=== PATIENT | female | born 1955 | race Caucasian/White ===

== ENCOUNTER 2018-09-23 14:18 | Emergency (ER) | payer OTHER ==
[~2018-09-23] VITALS: Ht 162.5 cm; Wt 127.9 kg
[~2018-09-23 14:18] MED LIST: AMOXIL500 MG PO; ANAPROX DS550 MG PO; ANTIVERT25 MG PO; BIAXIN500 MG PO; CHOLESTEROL PILL; CIPRODEX 0.3%-7.5 ML OT; CLARITIN10 MG PO; DAYPRO600 M1 PO; HYDROCODONE BIT1 T11 PO; MOTRIN800 MG; MOTRIN800 MG PO; NAPROSYN500 MG PO; NKHM; NORFLEX100 MG PO; PROZAC20 MG; PROZAC20 MG PO; ROBAXIN750 MG PO; SEPTRA DS 800 M1 TAB PO; SYNTHROID0.025 MG; THYROID; TORADOL10 MG PO; TRAMADOL HCL50 MG PO; TRIMOX500 MG PO; ULTRAM PO; ULTRAM50 MG PO; VICODIN 5/500 505 MG; VICODIN 5/500 505 MG PO; VICODIN 500 MG-1 TAB PO; ZOFRAN ODT4 MG SL
== END 2018-09-23 17:00 | disposition home or self-care (01) ==
LOC: ED 14:18
DX: T14.8XXA Other injury of unspecified body region, initial encounter (principal); M25.562 Pain in left knee; M25.531 Pain in right wrist; M79.631 Pain in right forearm; M25.572 Pain in left ankle and joints of left foot; W01.0XXA Fall on same level from slipping, tripping and stumbling without subsequent striking against object, initial encounter; Y93.01 Activity, walking, marching and hiking; Y92.89 Other specified places as the place of occurrence of the external cause; Y99.8 Other external cause status

== ENCOUNTER 2018-10-07 17:01 | Emergency (ER) | payer OTHER ==
[~2018-10-07] VITALS: Ht 162.5 cm; Wt 113.4 kg
== END 2018-10-07 17:57 | disposition home or self-care (01) ==
LOC: ED 17:01
DX: S90.02XA Contusion of left ankle, initial encounter (principal); X58.XXXA Exposure to other specified factors, initial encounter; Y93.89 Activity, other specified; Y92.89 Other specified places as the place of occurrence of the external cause; Y99.8 Other external cause status

== ENCOUNTER → 2019-02-10 | Outpatient (CLI) | payer OTHER | END | disposition home or self-care (01) | LOC: US 01-25 12:30 | DX: M79.605 Pain in left leg (principal); M79.604 Pain in right leg; R09.89 Other specified symptoms and signs involving the circulatory and respiratory systems; I73.9 Peripheral vascular disease, unspecified; Z72.0 Tobacco use ==

== ENCOUNTER → 2019-05-23 | Outpatient (CLI) | payer OTHER | END | disposition home or self-care (01) | LOC: MAMMO 09:04 | DX: Z12.31 Encounter for screening mammogram for malignant neoplasm of breast (principal) ==

== ENCOUNTER 2019-06-11 12:10 | Emergency (ER) | payer OTHER ==
[~2019-06-11] VITALS: Ht 162.5 cm; Wt 108.9 kg
[2019-06-11 13:23] LABS: BASO # 0.1 10*3/uL (0.0-0.1); BASO % 0.9 % (0.0-1.0); EOS # 0.1 10*3/uL (0.0-0.4); EOS % 1.7 % (1.0-4.0); HEMOGLOBIN 11.7 g/dl (12.0-16.0); LYMPH # 1.4 10*3/uL (1.3-4.4); MEAN CELL VOLUME 92.8 fl (81.0-99.0); MEAN CORPUSCULAR HGB 30.2 pg (27.0-31.0); MEAN CORPUSCULAR HGB CONC 32.5 g/dl (33.0-37.0); MEAN PLATELET VOLUME 8.4 fl (9.6-12.3); MONO # 0.8 10*3/uL (0.1-1.0); MONO % 11.7 % (3.0-9.0); NEUT # 4.5 10*3/uL (2.3-7.9); NEUT % 64.8 % (47.0-73.0); PLATELET COUNT AUTOMATED 256 10*3/uL (130-400); RED BLOOD COUNT 3.88 10*6/uL (4.10-5.10); RED CELL DISTRI WIDTH 12.3 % (0-14.5)
[2019-06-11 13:40] LABS: ALBUMIN 3.8 gm/dl (3.1-4.5); ALKALINE PHOSPHATASE 85 U/L (45-117); BUN 6 mg/dl (7-24); CHLORIDE 97 mmol/L (98-107); CREATININE 0.87 mg/dL (0.55-1.02); POTASSIUM 4.4 mmol/L (3.5-5.1); SGOT/AST 18 IU/L (3-35); SGPT/ALT 27 U/L (12-78); SODIUM 130 mmol/L (136-145); TOTAL PROTEIN 7.1 gm/dL (6.4-8.2)
[2019-06-11 13:41] LABS: TROPONIN I < 0.015 ng/ml (<0.045)
[2019-06-11] MEDS ORDERED: PREDNISONE20 M1 PO (14:21)
[2019-06-11] MEDS ORDERED: VIBRAMYCIN100 MG PO (14:21)
== END 2019-06-11 14:24 | disposition home or self-care (01) ==
LOC: ED 12:10
PROVIDERS: Emergency Medicine
DX: J44.1 Chronic obstructive pulmonary disease with (acute) exacerbation (principal); E78.00 Pure hypercholesterolemia, unspecified; F32.9 Major depressive disorder, single episode, unspecified; F17.200 Nicotine dependence, unspecified, uncomplicated; Z79.899 Other long term (current) drug therapy; Z90.710 Acquired absence of both cervix and uterus

== ENCOUNTER 2019-09-17 13:40 | Inpatient (IN) | payer OTHER, MEDICAID ==
[~2019-09-17] VITALS: Ht 162.5 cm; Wt 114.8 kg
[~2019-09-17 13:40] MED LIST changes: +PREDNISONE20 M1 PO; +VIBRAMYCIN100 MG PO
[2019-09-17 13:48] VITALS: BP 156/77
[2019-09-17 15:55] LABS: BASO # 0.1 10*3/uL (0.0-0.1); BASO % 0.5 % (0.0-1.0); EOS # 0.2 10*3/uL (0.0-0.4); HEMATOCRIT 33.6 % (37.0-47.0); LYMPH # 1.5 10*3/uL (1.3-4.4); LYMPH % 15.6 % (27.0-41.0); MEAN CELL VOLUME 91.6 fl (81.0-99.0); MEAN CORPUSCULAR HGB 29.4 pg (27.0-31.0); MEAN CORPUSCULAR HGB CONC 32.1 g/dl (33.0-37.0); MEAN PLATELET VOLUME 8.2 fl (9.6-12.3); MONO # 0.7 10*3/uL (0.1-1.0); MONO % 7.8 % (3.0-9.0); NEUT # 6.9 10*3/uL (2.3-7.9); NEUT % 73.2 % (47.0-73.0); PLATELET COUNT AUTOMATED 303 10*3/uL (130-400); RED BLOOD COUNT 3.67 10*6/uL (4.10-5.10); RED CELL DISTRI WIDTH 12.5 % (0-14.5); WHITE BLOOD COUNT 9.4 10*3/uL (4.8-10.8)
[2019-09-17 16:10] LABS: ALBUMIN 3.4 gm/dl (3.1-4.5); ALKALINE PHOSPHATASE 108 U/L (45-117); BUN 7 mg/dl (7-24); CHLORIDE 101 mmol/L (98-107); CREATININE 0.84 mg/dL (0.55-1.02); POTASSIUM 4.2 mmol/L (3.5-5.1); SGOT/AST 18 IU/L (3-35); SGPT/ALT 26 U/L (12-78); SODIUM 135 mmol/L (136-145); TOTAL PROTEIN 6.8 gm/dL (6.4-8.2)
[2019-09-17 18:15] VITALS: BP 146/74
--- NOTE | 2019-09-17 18:15 | NUR ---
Time: 1814 A 63 year old FEMALE admitted to 5E under services of DR. MARY RUSH,BK. Pt. arrived via stretcher from ER. Chief complaint: BACK/GROIN PAIN. JAISON COLEY
[2019-09-17] MEDS ORDERED: PRILOSEC20 M1 PO (18:36)
[2019-09-17] MEDS ORDERED: ARIPIPRAZOLE10 MG PO (18:36)
[2019-09-17] MEDS ORDERED: ROSUVASTATIN CA40 MG PO (18:37)
[2019-09-17] MEDS ORDERED: Synthroid,Levo88 MCG PO (18:37)
[2019-09-17] MEDS ORDERED: ZOLPIDEM10 MG PO (18:38)
[2019-09-17] MEDS ORDERED: [UNRECOGNIZED DRUG - REMARK] PO (18:38)
[2019-09-17] MEDS ORDERED: NEURONTIN300 MG PO (18:40)
[2019-09-17] MEDS ORDERED: HYDROXYZINE PAM25 M1 PO (18:41)
[2019-09-17] MEDS ORDERED: MELOXICAM7.5 MG PO (18:43)
[2019-09-17 20:00] VITALS: BP 119/77
--- NOTE | 2019-09-17 21:12 | NUR ---
PATIENT COMPLAINING OF BACK PAIN. DR HERNANDEZ CALLED FOR ORDERS WITHOUT ANSWER. WILL RETRY.
--- NOTE | 2019-09-17 21:16 | NUR ---
NEW ORDER REC'D FOR TORADOL FROM DR HERNANDEZ.
[2019-09-17 21:30] LABS: BILIRUBIN NEGATIVE (NEGATIVE); BLOOD TRACE-LYSED (NEGATIVE); CLARITY CLEAR (CLEAR); COLOR YELLOW (YELLOW); GLUCOSE NEGATIVE (NEGATIVE); KETONE NEGATIVE (NEGATIVE); SPECIFIC GRAVITY 1.005 (1.005-1.030)
[2019-09-17 21:31] LABS: LEUKO ESTERASE NEGATIVE (NEGATIVE); NITRITE NEGATIVE (NEGATIVE); UROBILINOGEN 0.2 E.U./dl (0.2-1.0)
[2019-09-17 21:37] LABS: BACTERIA TRACE; RBC 0-2 rbc/hpf (0-2)
--- NOTE | 2019-09-17 22:03 | NUR ---
1X IV TORADOL GIVEN PER ORDERS FOR PATIENTS C/O BACK AND GROIN PAIN.
--- NOTE | 2019-09-17 23:31 | NUR ---
PATIENT STATES PAIN HAS RESOLVED WITH TORADOL.
[2019-09-18] VITALS: BP 125/69
--- NOTE | 2019-09-18 03:14 | NUR ---
PATIENT SLEEPING; EASY RESPIRATIONS ON ROOM AIR. CALL LIGHT IN [facility].
--- NOTE | 2019-09-18 05:56 | NUR ---
Hep Lock discontinued. Site ECCHYMOTIC & PAINFUL. Pressure applied. Sterile dressing applied. DALJIT GEE
--- NOTE | 2019-09-18 06:00 | NUR ---
PATIENT IS COMPLAINING OF BACK PAIN R/T FALL AT HOME. DR HERNANDEZ CALLED FOR ORDERS. NEW ORDER FOR AMBER ROTHMAN'Carloz.
[2019-09-18 06:25] LABS: BASO # 0.1 10*3/uL (0.0-0.1); BASO % 0.7 % (0.0-1.0); EOS # 0.2 10*3/uL (0.0-0.4); EOS % 3.4 % (1.0-4.0); HEMATOCRIT 33.5 % (37.0-47.0); LYMPH # 1.3 10*3/uL (1.3-4.4); LYMPH % 18.1 % (27.0-41.0); MEAN CELL VOLUME 90.5 fl (81.0-99.0); MEAN CORPUSCULAR HGB 28.6 pg (27.0-31.0); MEAN CORPUSCULAR HGB CONC 31.6 g/dl (33.0-37.0); MEAN PLATELET VOLUME 8.6 fl (9.6-12.3); MONO # 0.7 10*3/uL (0.1-1.0); MONO % 10.5 % (3.0-9.0); NEUT # 4.7 10*3/uL (2.3-7.9); NEUT % 66.7 % (47.0-73.0); PLATELET COUNT AUTOMATED 317 10*3/uL (130-400); RED CELL DISTRI WIDTH 12.5 % (0-14.5); WHITE BLOOD COUNT 7.1 10*3/uL (4.8-10.8)
[2019-09-18 07:00] LABS: ALBUMIN 3.1 gm/dl (3.1-4.5); BUN 8 mg/dl (7-24); CHLORIDE 101 mmol/L (98-107); CREATININE 0.84 mg/dL (0.55-1.02); POTASSIUM 4.4 mmol/L (3.5-5.1); SGOT/AST 14 IU/L (3-35); SGPT/ALT 21 U/L (12-78); SODIUM 137 mmol/L (136-145)
[2019-09-18 07:01] LABS: ALKALINE PHOSPHATASE 94 U/L (45-117); TOTAL PROTEIN 6.2 gm/dL (6.4-8.2)
[2019-09-18 08:00] VITALS: BP 136/71
--- NOTE | 2019-09-18 08:13 | NUR ---
NORCO RELIEVING PAIN PER PT. WILL CONTINUE TO MONITOR.
[2019-09-18 12:00] VITALS: BP 107/69
--- NOTE | 2019-09-18 13:23 | NUR ---
PT MEDICATED WITH PO NORCO PER PRN ORDER FOR C/O LOWER BACK PAIN. RATES PAIN 11/13. WILL MONITOR EFFECTIVENES. PT ALSO MEDICATED WITH PO VISTARIL PER PRN ORDER FOR C/O ANXIETY. WILL MONITOR EFFECTIVENESS. CALL LIGHT WITHIN REACH.
--- NOTE | 2019-09-18 13:35 | NUR ---
NOTIFIED REGARDING PODIATRY CONSULT.
[2019-09-18 14:12] LABS: THYROID STIM HORMONE (HS) 22.8 uIU/ml (0.358-4.75)
--- NOTE | 2019-09-18 14:23 | NUR ---
NORCO AND VISTARIL EFFECTIVE PER PT. WILL CONTINUE TO MONITOR. CALL LIGHT WITHIN REACH.
[2019-09-18 16:00] VITALS: BP 124/57
--- NOTE | 2019-09-18 19:59 | NUR ---
PT REQUESTING PAIN MEDICATION AND STATES SHE TAKES NORCO 4 TIMES A DAY. RN QUESTIONED THIS, MEDICATION NOT LISTED ON MED REC. PT STATES NORCO WAS RECENTLY CHANGED TO NEURONTIN. RN EXPLAINED THAT NEURONTIN IS DUE AT 2200. PT IN AGREEANCE WITH THIS. AWARE NORCO IS AVAILABLE AT THIS TIME BID PRN FOR PAIN TO SUPPLEMENT. VERBALIZES UNDERSTANDING. IV VANC INFUSION INITIATED PER ORDER. WILL MONITOR. CALL LIGHT IN REACH.
[2019-09-18 20:00] VITALS: BP 132/68
--- NOTE | 2019-09-18 20:57 | NUR ---
CLAUDIA MARTIN ADMINISTERED PER REQUEST FOR C/O INSOMNIA. WILL MONITOR EFFECTIVENESS. CALL LIGHT IN REACH.
--- NOTE | 2019-09-18 21:45 | NUR ---
PT STATES EARLIER CHAYAMARY ANN HAS NOT YET MADE HER TIRED, BUT WANTS TO "GIVE IT A LITTLE WHILE." WILL MONITOR.
--- NOTE | 2019-09-18 22:56 | NUR ---
PT'S DAUGHTER CALLED DESK STATING PATIENT IS IN PAIN, BUT WON'T TELL RN. RN IN TO FLUSH PT'S IV. ASKED ABOUT PAIN. PT STATES SHE IS HAVING PAIN IN GROIN/BACK RATED 8/10. REQUESTING PAIN MEDICATION. CALLED AT THIS TIME AND NOTIFIED OF REQUEST. AWARE PT HAS HAD BOTH DOSES OF NORCO FOR TODAY. NEW ORDER RECEIVED FOR 0.5 DILAUDID X1 DOSE NOW.
--- NOTE | 2019-09-18 23:12 | NUR ---
IV DILAUDID ADMINISTERED PER ONE TIME ORDER FOR C/O GROIN/BACK PAIN RATED 8/10. WILL MONITOR EFFECTIVENESS. CALL LIGHT IN REACH.
--- NOTE | 2019-09-18 23:49 | NUR ---
EARLIER MEDICATIONS EFFECTIVE PER PT. WILL CONTINUE TO MONITOR. CALL LIGHT IN REACH.
[2019-09-19] VITALS: BP 150/76
--- NOTE | 2019-09-19 01:57 | NUR ---
PT ASLEEP IN BED. RESPIRATIONS EASY. NO S/S OF DISTRESS NOTED. WILL MONITOR. CALL LIGHT IN REACH.
--- NOTE | 2019-09-19 06:38 | NUR ---
NEW IV SITE INITIATED TO LAC PER POLICY. IV SITE TO RAC LEAKING. RAC SITE REMOVED AND DSD APPLIED.
[2019-09-19 07:21] LABS: BASO % 0.3 % (0.0-1.0); HEMATOCRIT 36.8 % (37.0-47.0); LYMPH # 0.8 10*3/uL (1.3-4.4); LYMPH % 8.6 % (27.0-41.0); MEAN CELL VOLUME 90.6 fl (81.0-99.0); MEAN CORPUSCULAR HGB 28.8 pg (27.0-31.0); MEAN CORPUSCULAR HGB CONC 31.8 g/dl (33.0-37.0); MEAN PLATELET VOLUME 8.2 fl (9.6-12.3); MONO # 0.5 10*3/uL (0.1-1.0); MONO % 5.6 % (3.0-9.0); NEUT # 7.7 10*3/uL (2.3-7.9); NEUT % 84.5 % (47.0-73.0); PLATELET COUNT AUTOMATED 321 10*3/uL (130-400); RED BLOOD COUNT 4.06 10*6/uL (4.10-5.10); RED CELL DISTRI WIDTH 12.4 % (0-14.5); WHITE BLOOD COUNT 9.2 10*3/uL (4.8-10.8)
[2019-09-19 07:43] LABS: BUN 8 mg/dl (7-24); CHLORIDE 102 mmol/L (98-107); CREATININE 0.87 mg/dL (0.55-1.02); POTASSIUM 4.3 mmol/L (3.5-5.1); SODIUM 137 mmol/L (136-145)
[2019-09-19 08:00] VITALS: BP 142/72
--- NOTE | 2019-09-19 08:00 | NUR ---
ASSESSMENT COMPLETE. PT AWARE NPO FOR TESTING THIS MORNING. SITTING AT BEDSIDE, EDEMA NOTED TO LOWER EXTREMITY, PT REFUSE SARA HOSE AT THIS TIME. PT STATES NO OTHER NEEDS AT THIS TIME.
--- NOTE | 2019-09-19 08:15 | NUR ---
Shift chart check completed.
--- NOTE | 2019-09-19 08:24 | NUR ---
PT SENT TO ULTRASOUND FOR ULTRASOUND ABDOMEN
--- NOTE | 2019-09-19 08:29 | NUR ---
Per nurse caring for patient, patient is off floor for multiple testing.
--- NOTE | 2019-09-19 10:30 | NUR ---
Practice Architect in to talk to patient. Patient states lives at home with her daughter. There are basement steps in the home. Physician: Dr. Praneeth Galeano [facility] Home health services: none Patient's level of ADLs: MINIMAL ASSIST Patient has working utilities: yes DME: cane Follow-up physician's appointment after d/c: she prefers to make her own follow up appt after discharge Does patient want to access PORTAL?: no Discharge plan discussed with patient. She is sitting on the edge of her bed. She lives at home with her daughter. She is independent in her ADLs and occasionally uses a cane when ambulating. Discussed home health care services and she denies any home needs. She states she does see [facility]. When medically stable she will be discharged to home. She states her sister or daughter will provide transportation on discharge. KRISS VILLARREAL
--- NOTE | 2019-09-19 11:20 | NUR ---
PT COMPLAIN OF BACK PAIN, NORCO GIVEN
[2019-09-19 12:00] VITALS: BP 136/68
[2019-09-19 16:00] VITALS: BP 138/73
--- NOTE | 2019-09-19 16:40 | NUR ---
NORCO GIVEN FOR BACK PAIN. WILL MONITOR.
--- NOTE | 2019-09-19 17:13 | NUR ---
DESMOND EFFECTIVE PER PT. NO NEW COMPLAINTS. CALL LIGHT WITHIN REACH.
[2019-09-19 20:00] VITALS: BP 139/68
--- NOTE | 2019-09-19 23:08 | NUR ---
NOTIFIED OF PATIENT'S REQUEST FOR DILAUDID. PT HAD A ONE TIME DOSE OF DILAUDID LAST NIGHT THAT WAS EFFECTIVE. OKAY TO ORDER ONE TIME DOSE PER .
--- NOTE | 2019-09-19 23:44 | NUR ---
IV DILAUDID ADMINISTERED PER ONE TIME ORDER FOR C/O PAIN IN BACK/GROIN RATED 8/10. WILL MONITOR. CALL LIGHT IN REACH.
[2019-09-20] VITALS: BP 151/88
--- NOTE | 2019-09-20 00:39 | NUR ---
EARLIER MEDICATION APPEARS EFFECTIVE. PT ASLEEP IN BED. RESPIRATIONS EASY. NO S/S OF DISTRESS NOTED. WILL MONITOR. CALL LIGHT IN REACH.
--- NOTE | 2019-09-20 02:12 | NUR ---
PT ASLEEP IN BED. RESPIRATIOND EASY. NO S/S OF DISTRESS NOTED. WILL MONITOR. CALL LIGHT IN REACH.
--- NOTE | 2019-09-20 05:56 | NUR ---
SHANICE ALAN [id number] Please refer to the physician's history and physical for past medical history, comorbid conditions, and allergies. Diagnosis: CELLULITIS Luigi Score: 22,LOW OR NO RISK WOUND DESCRIPTIONS: Wound Number: 1 Location of the wound: Right great toe Thickness: Partial Size: 0.1cm x 0.5cm x 0.1cm Tunneling: none Undermining: none Sinus Tract: none Presence of Exudate: none Amount: None Color: Red Odor: None Periwound Skin Appearance: Normal Wound edges: approximated Pain (associated with wound): none at time of assessment How does patient state this happened? pt stated she got a blister from wearing her shoes and she popped it opened she stated when she returns home she will care for the area and doesn't wish to follow up an outpatient setting at this time Wound Number 2: Left lower extremity is pink and blanchable at time of assessent. No open areas noted at time of assessment. No drainage noted at time of assessment. Patient states area is much better than when she came in Surface the patient is resting on: Proform SKIN PREVENTION RECOMMENDATION: 1. Pressure redistribution support surface as appropriate 2. Elevate heels 3. Remove boots/TEDS every shift and reapply 4. Head of bed 30 degrees as tolerated 5. Assess nutrition and hydration 6. Manage moisture 7. Avoid the use of containment devices while in bed 8. Use absorptive products on surfaces limit layers of linens on bed 9. Turn and reposition every 1-2 hours in bed and every 1 hour in chair as tolerated 10. Weight shifts every 15 minutes while up in chair 11. Offloading with pillows or device to keep heels elevated off bed 12. Monitor skin at least every shift 13. Inspect under medical devices twice a day WOUND TREATMENT RECOMMENDATIONS: Podiatry is already on consult Cleanse right great toe with nss and apply neosporin ointment daily and prn and cover with bandaid
[2019-09-20 06:00] LABS: BASO % 0.1 % (0.0-1.0); HEMATOCRIT 34.1 % (37.0-47.0); LYMPH # 1.4 10*3/uL (1.3-4.4); LYMPH % 8.7 % (27.0-41.0); MEAN CELL VOLUME 90.2 fl (81.0-99.0); MEAN CORPUSCULAR HGB 29.1 pg (27.0-31.0); MEAN CORPUSCULAR HGB CONC 32.3 g/dl (33.0-37.0); MEAN PLATELET VOLUME 8.9 fl (9.6-12.3); MONO # 0.9 10*3/uL (0.1-1.0); NEUT # 12.9 10*3/uL (2.3-7.9); NEUT % 83.5 % (47.0-73.0); PLATELET COUNT AUTOMATED 361 10*3/uL (130-400); RED BLOOD COUNT 3.78 10*6/uL (4.10-5.10); RED CELL DISTRI WIDTH 12.4 % (0-14.5); WHITE BLOOD COUNT 15.5 10*3/uL (4.8-10.8)
[2019-09-20 06:09] LABS: BUN 13 mg/dl (7-24); CHLORIDE 99 mmol/L (98-107); CREATININE 0.98 mg/dL (0.55-1.02); POTASSIUM 4.1 mmol/L (3.5-5.1); SODIUM 136 mmol/L (136-145)
[2019-09-20 08:00] VITALS: BP 140/72
--- NOTE | 2019-09-20 08:00 | NUR ---
PT C/O OF LOWER BACK PAIN AND ALICIA LEG PAIN RATING 8/10 PRN NORCO GIVEN PER ORDER
--- NOTE | 2019-09-20 08:30 | NUR ---
PER PT NORCO WAS EFFECTIVE FOR PAIN
--- NOTE | 2019-09-20 08:59 | NUR ---
Dr. Stephens notified of wound care recommendations
[2019-09-20] MEDS ORDERED: FUROSEMIDE10 MG/1 M1 PO (11:24)
[2019-09-20] MEDS ORDERED: HYDROCODONE-AC1 EAC1 PO (11:24)
[2019-09-20] MEDS ORDERED: CEPHALEXIN500 M1 PO (11:34)
--- NOTE | 2019-09-20 13:14 | NUR ---
Discharge instructions reviewed with patient/family. Patient receptive and verbalizes understanding. Follow-up care arranged. Written instructions given to patient/family. RUBY COBIAN
== END 2019-09-20 13:25 | disposition home or self-care (01) | DRG 603 ==
LOC: ED 13:40 → 5E 17:20 → EDHOLD 17:20 → 5E 17:50
PROVIDERS: Internal Medicine; Physician Assistant; ADMIT Internal Medicine
PROC: 0HBRXZZ Excision of Toe Nail, External Approach (ICD-10-PCS; principal; 2019-09-19)
DX: L03.116 Cellulitis of left lower limb (principal); J44.1 Chronic obstructive pulmonary disease with (acute) exacerbation; M46.1 Sacroiliitis, not elsewhere classified; E03.9 Hypothyroidism, unspecified; G62.9 Polyneuropathy, unspecified; F41.9 Anxiety disorder, unspecified; E78.5 Hyperlipidemia, unspecified; M51.36 Other intervertebral disc degeneration, lumbar region; B35.1 Tinea unguium; L60.0 Ingrowing nail; I50.9 Heart failure, unspecified; M54.5 Low back pain; F32.9 Major depressive disorder, single episode, unspecified; R10.9 Unspecified abdominal pain; Z79.899 Other long term (current) drug therapy; Z90.710 Acquired absence of both cervix and uterus

== ENCOUNTER 2019-10-25 12:23 | Observation (INO) | payer OTHER, MEDICAID ==
[~2019-10-25] VITALS: Ht 162.5 cm; Wt 127.2 kg
[~2019-10-25 12:23] MED LIST changes: +ARIPIPRAZOLE10 MG PO; +CEPHALEXIN500 M1 PO; +FUROSEMIDE10 MG/1 M1 PO; +HYDROCODONE-AC1 EAC1 PO; +HYDROXYZINE PAM25 M1 PO; +MELOXICAM7.5 MG PO; +NEURONTIN300 MG PO; +PRILOSEC20 M1 PO; +ROSUVASTATIN CA40 MG PO; +Synthroid,Levo88 MCG PO; +ZOLPIDEM10 MG PO; +[UNRECOGNIZED DRUG - REMARK] PO
[2019-10-25 12:28] VITALS: BP 147/75
[2019-10-25 13:15] LABS: BASO # 0.1 10*3/uL (0.0-0.1); BASO % 0.7 % (0.0-1.0); EOS # 0.1 10*3/uL (0.0-0.4); EOS % 1.6 % (1.0-4.0); HEMATOCRIT 35.7 % (37.0-47.0); LYMPH # 1.1 10*3/uL (1.3-4.4); LYMPH % 16.9 % (27.0-41.0); MEAN CORPUSCULAR HGB 28.1 pg (27.0-31.0); MEAN CORPUSCULAR HGB CONC 33.1 g/dl (33.0-37.0); MEAN PLATELET VOLUME 7.9 fl (9.6-12.3); MONO # 0.5 10*3/uL (0.1-1.0); MONO % 7.5 % (3.0-9.0); NEUT # 4.9 10*3/uL (2.3-7.9); NEUT % 72.4 % (47.0-73.0); PLATELET COUNT AUTOMATED 339 10*3/uL (130-400); RED CELL DISTRI WIDTH 12.3 % (0-14.5); WHITE BLOOD COUNT 6.8 10*3/uL (4.8-10.8)
[2019-10-25 13:35] LABS: ALBUMIN 3.8 gm/dl (3.1-4.5); ALKALINE PHOSPHATASE 166 U/L (45-117); BUN 12 mg/dl (7-24); CHLORIDE 88 mmol/L (98-107); CREATININE 0.85 mg/dL (0.55-1.02); POTASSIUM 3.7 mmol/L (3.5-5.1); SGOT/AST 13 IU/L (3-35); SGPT/ALT 22 U/L (12-78); SODIUM 125 mmol/L (136-145); TOTAL PROTEIN 7.4 gm/dL (6.4-8.2)
[2019-10-25] MEDS ORDERED: KLOR-CON M2020 ME1 PO (13:50)
[2019-10-25] MEDS ORDERED: LASIX20 MG PO (13:51)
[2019-10-25 14:00] VITALS: BP 134/65
[2019-10-25 16:00] VITALS: BP 132/71
[2019-10-25 20:00] VITALS: BP 152/75
[2019-10-26] VITALS: BP 120/68
[2019-10-26 06:46] LABS: BASO # 0.1 10*3/uL (0.0-0.1); EOS # 0.1 10*3/uL (0.0-0.4); EOS % 2.4 % (1.0-4.0); HEMATOCRIT 33.3 % (37.0-47.0); LYMPH # 1.1 10*3/uL (1.3-4.4); LYMPH % 18.8 % (27.0-41.0); MEAN CELL VOLUME 86.7 fl (81.0-99.0); MEAN CORPUSCULAR HGB 28.4 pg (27.0-31.0); MEAN CORPUSCULAR HGB CONC 32.7 g/dl (33.0-37.0); MEAN PLATELET VOLUME 8.5 fl (9.6-12.3); MONO # 0.6 10*3/uL (0.1-1.0); MONO % 10.9 % (3.0-9.0); NEUT # 3.9 10*3/uL (2.3-7.9); NEUT % 65.9 % (47.0-73.0); PLATELET COUNT AUTOMATED 317 10*3/uL (130-400); RED BLOOD COUNT 3.84 10*6/uL (4.10-5.10); RED CELL DISTRI WIDTH 12.4 % (0-14.5); WHITE BLOOD COUNT 5.9 10*3/uL (4.8-10.8)
[2019-10-26 06:50] LABS: ALBUMIN 3.2 gm/dl (3.1-4.5); BUN 12 mg/dl (7-24); CHLORIDE 98 mmol/L (98-107); CREATININE 0.73 mg/dL (0.55-1.02); SGOT/AST 12 IU/L (3-35); SGPT/ALT 18 U/L (12-78); SODIUM 132 mmol/L (136-145)
[2019-10-26 06:51] LABS: ALKALINE PHOSPHATASE 143 U/L (45-117); TOTAL PROTEIN 6.2 gm/dL (6.4-8.2)
[2019-10-26 08:00] VITALS: BP 133/75
[2019-10-26 12:00] VITALS: BP 118/82
[2019-10-26 16:00] VITALS: BP 119/74
[2019-10-26 17:16] LABS: BILIRUBIN NEGATIVE (NEGATIVE); BLOOD NEGATIVE (NEGATIVE); CLARITY CLEAR (CLEAR); COLOR STRAW (YELLOW); GLUCOSE NEGATIVE (NEGATIVE); KETONE NEGATIVE (NEGATIVE); LEUKO ESTERASE NEGATIVE (NEGATIVE); NITRITE NEGATIVE (NEGATIVE); PH 6.5 (5.0-9.0); SPECIFIC GRAVITY 1.005 (1.005-1.030); UROBILINOGEN 0.2 E.U./dl (0.2-1.0)
[2019-10-26 20:00] VITALS: BP 122/63
[2019-10-27] VITALS: BP 122/61
[2019-10-27 08:00] VITALS: BP 108/53
[2019-10-27 12:00] VITALS: BP 124/66
[2019-10-27] MEDS ORDERED: CEFUROXIME AXE500 MG PO (14:14)
== END 2019-10-27 14:15 | disposition home or self-care (01) ==
LOC: ED 12:23 → EDHOLD 13:01 → 5E 13:20
PROVIDERS: Nurse Practitioner Family; ADMIT Internal Medicine Nephrology
DX: L03.116 Cellulitis of left lower limb (principal); F41.9 Anxiety disorder, unspecified; E78.5 Hyperlipidemia, unspecified; M46.1 Sacroiliitis, not elsewhere classified; K83.8 Other specified diseases of biliary tract

== ENCOUNTER → 2019-12-21 | Outpatient (CLI) | payer OTHER ==
[~2019-12-21] MED LIST changes: +BUDESONIDE-FO10.2 G1 INH; +CEFUROXIME AXE500 MG PO; +DOXYCYCLINE100 M3 PO; +ESCITALOPRAM OX20 MG PO; +FLUCONAZOLE100 MG PO; +KLOR-CON M2020 ME1 PO; +LASIX20 MG PO; +MUCUS RELIEF600 MG PO; +NYSTOP60 GM T; +PREDNISONE10 MG PO; +PROVENTIL HFA6.7 GM INH; +PROVENTIL HFA6.7 GM NEB; +TRAVEL SICKNESS25 M1 PO
== END | disposition home or self-care (01) ==
LOC: RAD 13:06
PROVIDERS: ATTEND Internal Medicine Nephrology
DX: J18.9 Pneumonia, unspecified organism (principal)

== ENCOUNTER 2019-12-23 13:28 | Inpatient (IN) | payer OTHER ==
[~2019-12-23] VITALS: Ht 162.5 cm; Wt 118.4 kg
[2019-12-23 13:32] VITALS: BP 128/66
[2019-12-23 14:18] LABS: BASO % 0.1 % (0.0-1.0); EOS % 0.2 % (1.0-4.0); HEMATOCRIT 33.7 % (37.0-47.0); LYMPH # 1.5 10*3/uL (1.3-4.4); LYMPH % 9.7 % (27.0-41.0); MEAN CELL VOLUME 86.4 fl (81.0-99.0); MEAN CORPUSCULAR HGB 28.2 pg (27.0-31.0); MEAN CORPUSCULAR HGB CONC 32.6 g/dl (33.0-37.0); MEAN PLATELET VOLUME 8.5 fl (9.6-12.3); MONO # 0.7 10*3/uL (0.1-1.0); MONO % 4.2 % (3.0-9.0); NEUT # 12.9 10*3/uL (2.3-7.9); NEUT % 84.3 % (47.0-73.0); PLATELET COUNT AUTOMATED 348 10*3/uL (130-400); RED CELL DISTRI WIDTH 12.8 % (0-14.5); WHITE BLOOD COUNT 15.3 10*3/uL (4.8-10.8)
[2019-12-23 14:32] LABS: ALBUMIN 3.2 gm/dl (3.1-4.5); ALKALINE PHOSPHATASE 157 U/L (45-117); BUN 9 mg/dl (7-24); CHLORIDE 91 mmol/L (98-107); CREATININE 0.85 mg/dL (0.55-1.02); POTASSIUM 4.2 mmol/L (3.5-5.1); SGOT/AST 10 IU/L (3-35); SGPT/ALT 21 U/L (12-78); SODIUM 126 mmol/L (136-145); TOTAL PROTEIN 6.3 gm/dL (6.4-8.2)
[2019-12-23 16:45] VITALS: BP 136/60
--- NOTE | 2019-12-23 16:45 | NUR ---
A 64, admitted to , under the services of BK Brown MD with a diagnosis of INABILITY TO AMBULATE D/T L HIP, HYPONATREMIA, LEUKOCYTOSIS. Chief complaint is L HIP PAIN. Patient arrived via bed from ER. Monitor applied. Initial assessment completed. Vital signs taken and recorded. BK BROWN MD notified of admission to the unit. Orders received. See assessment for past medical history, medications and allergies. Patient and/or family oriented to unit. [facility] visitation policy reviewed. Clothing/patient valuable form completed. PATRICIA COUGHLIN
[2019-12-23 16:50] VITALS: BP 136/60
--- NOTE | 2019-12-23 17:15 | NUR ---
SPOKE WITH DR HERNANDEZ AND OBTAINED WITH ADMISSION ORDERS AT THIS TIME.
--- NOTE | 2019-12-23 17:55 | NUR ---
CONSULT CALLED TO DR SANTORO ANSWERING SERVICE. AWAITING CALL BACK.
--- NOTE | 2019-12-23 17:59 | NUR ---
SPOKE WITH A NURSE WORKING WITH DR SANTORO. DR SANTORO CURRENTLY IN SURGERY. CONSULT INFO GIVEN TO NURSE.
--- NOTE | 2019-12-23 18:24 | NUR ---
PT GIVEN DILAUDID 0.5 MG AT THIS TIME VIA IVP FOR PAIN TO LEFT HIP. WILL MONITOR FOR EFFECTIVENESS. FLUIDS INFUSING PER ORDERS. CALL LIGHT IN REACH.
--- NOTE | 2019-12-23 19:00 | NUR ---
ORDERS OBTAINED FROM DR SANTORO FOR PT TO HAVE ACTIVITY TOLERATED, APPLY SCDS TO LOWER EXTREMITIES, HOLD ANTICOAGULANTS X 24 HOURS, AND OBTAIN NUCLEAR MEDICINE WHOLE BODY BONE SCAN. APPROPRIATE ORDERS PLACED AT THIS TIME.
--- NOTE | 2019-12-23 19:04 | NUR ---
PT STATES THAT DILAUDID IS EFFECTIVE AT THIS TIME.
[2019-12-23 20:00] VITALS: BP 101/58
--- NOTE | 2019-12-23 20:00 | NUR ---
AAOX3 SITTING UP IN BED WITH HOB ELEVATED. IV FLUIDS INFUSING ORDERED; SITE ASYMPTOMATIC. PT. STATES DILAUDID GIVEN EARLIER SOMEWHAT EFFECTIVE. CALL LIGHT WITHIN REACH.
--- NOTE | 2019-12-23 22:42 | NUR ---
NICODERM PATCH APPLIED.
[2019-12-24] VITALS: BP 123/55
--- NOTE | 2019-12-24 06:00 | NUR ---
AROUSES EASILY TO TAKE PO MEDICATION. ALSO USED BEDPAN. VOICES NO C/O AT THIS TIME. CALL LIGHT WITHIN REACH.
[2019-12-24 06:23] LABS: BUN 7 mg/dl (7-24); CHLORIDE 97 mmol/L (98-107); CREATININE 0.73 mg/dL (0.55-1.02); POTASSIUM 3.8 mmol/L (3.5-5.1); SODIUM 134 mmol/L (136-145)
[2019-12-24 08:00] VITALS: BP 97/46
--- NOTE | 2019-12-24 09:14 | NUR ---
Certified Anesthesiologist Assistant in to talk to patient. Patient states lives at Home with daughter. There are 1 small steps in the home. Physician: Dr. Galeano and Ellen [facility] Home health services: not currently but would like [facility] on discharge for therapy Patient's level of ADLs: MODERATE ASSIST Patient has working utilities: Patient stating her [employer] has been shut off for about 2 weeks. She states they owe around 500 dollars and her daughter is going to job and family services to ask about HEAP. I also discussed with patient to contact the local [employer] to see if they can assist with this bill DME: kraig ratliff Follow-up physician's appointment after d/c: Patient will make her own appointment Does patient want to access PORTAL?: no Discharge plan Discussed discharge plan at this time. Patient stating she lives at home with her daughter and was a minimal assist, however now she has two fractures but they are not recommending surgery, they stated just therapy. I encouraged her to go to SNF rehab for this therapy to get stronger and heal prior to going home, however, at this time the patient does not want to do this. She wants to get therapy in the home with [facility]. Will follow. TREVER GONZALES
[2019-12-24 12:00] VITALS: BP 100/56
--- NOTE | 2019-12-24 12:00 | NUR ---
PHYSICAL THERAPY PT EVAL COMPLETED TODAY ON LEVEL 4: PATIENT WITH 10/10 PAIN ON EVAL AND WAS LIMITED IN PARTICIPATION; PT EVAL IS MODERATE COMPLEXITY: [id number]. COMPLETED BLE THER EX FOR PROM AND AROM WELL AAROM OF THE LLE AND AROM OF THE RLE ALONG WITH BED MOBILTIY TRAINING FOR ROLLING L AND R AND SUP<>SIT ALL WITH MAX ASSIST. REFUSING OUT OF BED DUE TO PAIN TODAY. BASED ON EVAL D/C RECOMMENDATIONS AT THIS TIME ARE FOR SHORT TERM SNF STAY TO REGAIN PLOF AND RETURN TO HOME WITH DAUGHTER. THANK YOU FOR REFERRAL ANISHA MINAYA PT
[2019-12-24 13:31] LABS: CEA 2.8 ng/mL
[2019-12-24 16:00] VITALS: BP 98/44
--- NOTE | 2019-12-24 17:32 | NUR ---
PHYSICAL THERAPY TREATMENT TIME: OUT 5:32 PM 25 MINUTES TOTAL PRESENTATION : Patient was supine in bed Head of bed elevated Bed alarm activated No spO2 ONE IV infusing 4/10 PAIN IN THE L HIP Patient did NOT have surgery Fx of the L illiac/HIP NO SURGERY COMPLAINTS: 4/10 PAIN in the L hip WT. BEARING STATUS: WBAT L LE ASSISTIVE DEVICE: WH Walker TRANSFERS: Supine > sitting on EOB: MIN A X 1 Sitting on EOB: SBA STS from EOB: CGA-MIN A Sit EOB > Supine : MIN A X 1 Assistance for lifting/supporting L LE <> bed Verbal cues for pushing off bed with one hand and one hand on Wh Walker Verbal cues for locking knees into extension upon standing and upright posture. TREATMENT: Standing tolerance at Walker: 3 Minutes with CGA/SBA GAIT with Walker and CGA for 5 ft. forwards and 5 ft. backwards Verbal cues for upright posture, locking knees into extension and pushing down on walker to assist with advancing L LE. RESPONSE TO TREATMENT: Patient tolerated transfers and gait with MODERATE increased pain to 5/10. Activity increased pain in L hip Patient able to tolerate the short gait and standing tolerance fairly well. NO SURGERY CONCLUSION: Patient was left in supine with head of bed elevated Call light within reach Bed alarm activated IV plugged into wall No spO2 Tray table beside patient Phone near patient Bed locked FARHAD PRATER BREAKER UP
[2019-12-24 18:00] VITALS: BP 98/44
[2019-12-24 20:00] VITALS: BP 125/65
--- NOTE | 2019-12-24 20:35 | NUR ---
MEDICATED WITH DILAUDID FOR C/O LEFT HIP PAIN RATED A 9/10.
--- NOTE | 2019-12-24 21:00 | NUR ---
RESTING IN BED; DILAUDID GIVEN EARLIER APPARENTLY EFFECTIVE.
[2019-12-25] VITALS: BP 117/52
--- NOTE | 2019-12-25 01:52 | NUR ---
MEDICATED WITH AMBIEN FOR C/O INSOMNIA.
--- NOTE | 2019-12-25 02:30 | NUR ---
RESTING IN BED WITH EYES CLOSED; CHAYAIEN APPARENTLY EFFECTIVE.
[2019-12-25 06:40] LABS: TOTAL PROTEIN, SERUM 5.9 g/dL (6.0-8.5)
[2019-12-25 08:00] VITALS: BP 104/66
--- NOTE | 2019-12-25 08:30 | NUR ---
PT RESTING IN BED. C/O L HIP PAIN. RESPS EASY AND NON LABORED. NO S/S OF DISTRESS NOTED. VSS. WHITE BOARD UPDATED. POC DISCUSSED W PT. IVF INFUSING W/O INCIDENT. PT REQUESTING TO TAKE OFF SCD'S AT THIS TIME.A/O X3. WILL [facility] TO [facility]. CALL LIGHT WITHIN REACH. BED ALARM ON.
--- NOTE | 2019-12-25 08:45 | NUR ---
PT C/O ACHING/STABBING 8/10 L HIP PAIN. MEDICATED PER ORDER. WILL MONITOR FOR RELIEF. RESPS EASY AND NON LABORED. RESTING IN BED EATING BREAKFAST. BED ALARM ON. CALL LIGHT WITHIN REACH.
--- NOTE | 2019-12-25 09:23 | NUR ---
MEDICATION EFFECTIVE PER PT
--- NOTE | 2019-12-25 10:53 | NUR ---
PHYSICAL THERAPY patient seen in room for 1:1 session today by this PT. Pain is better controlled today and reports 4/10 in the L hip. Able to complete BLE ther ex with AAROM of the LLE and AROM of the RLE for 2 sets of 10. Bed mobiltiy was min of 1 with use of railing to assist her to sitting. STS from bed with min of 1 and able gait 10 ft with fww and min of 1. Left up in chair with call light and nursing made aware. Expresses she wants to return to home with daughter on d/c with HH and does not want to go to SNF. off track betting manager notified via email. Yamilet Waller PT
[2019-12-25 12:00] VITALS: BP 109/50
--- NOTE | 2019-12-25 14:38 | NUR ---
PT RESTING IN CHAIR. VOICES NO CONCERNS AT THIS TIME. RESPS EASY AND NON LABORED. NO S/S OF DISTRESS NOTED. VSS. WILL CONTINUE TO MONITOR. CALL LIGHT WITHIN REACH.
[2019-12-25 16:00] VITALS: BP 107/53
--- NOTE | 2019-12-25 17:20 | NUR ---
PT C/O 11/13 ACHING/SHARP L LEG PAIN.MEDICATED PER ORDER. WILL MONITOR FOR RELIEF. VOICES NO OTHER CONCERNS. SITTING UP EATING DINNER. CALL LIGHT WITHIN REACH. BODY ALARM INTACT.
--- NOTE | 2019-12-25 18:15 | NUR ---
MEDICATION EFFECTIVE PER PT
[2019-12-25 20:00] VITALS: BP 126/55
--- NOTE | 2019-12-25 20:19 | NUR ---
PATIENT SITTING IN CHAIR AT BEDSIDE WITH NO NEEDS MADE. BED IN LOWEST POSITION, CALL LIGHT IN REACH
[2019-12-26] VITALS: BP 117/54
--- NOTE | 2019-12-26 02:27 | NUR ---
PATIENT RESTING IN BED WITH NO S/S OF DISTRESS. BED IN LOWEST POSITION, CALL LIGHT IN REACH
--- NOTE | 2019-12-26 02:34 | NUR ---
24 HR chart check completed.
[2019-12-26 06:34] LABS: BASO % 0.4 % (0.0-1.0); EOS # 0.3 10*3/uL (0.0-0.4); EOS % 3.6 % (1.0-4.0); HEMATOCRIT 31.8 % (37.0-47.0); LYMPH # 1.2 10*3/uL (1.3-4.4); LYMPH % 15.1 % (27.0-41.0); MEAN CELL VOLUME 88.8 fl (81.0-99.0); MEAN CORPUSCULAR HGB 27.9 pg (27.0-31.0); MEAN CORPUSCULAR HGB CONC 31.4 g/dl (33.0-37.0); MEAN PLATELET VOLUME 8.7 fl (9.6-12.3); MONO # 0.6 10*3/uL (0.1-1.0); MONO % 8.1 % (3.0-9.0); NEUT # 5.7 10*3/uL (2.3-7.9); NEUT % 72.3 % (47.0-73.0); PLATELET COUNT AUTOMATED 331 10*3/uL (130-400); RED BLOOD COUNT 3.58 10*6/uL (4.10-5.10); RED CELL DISTRI WIDTH 13.2 % (0-14.5); WHITE BLOOD COUNT 7.9 10*3/uL (4.8-10.8)
[2019-12-26 06:39] LABS: BUN 7 mg/dl (7-24); CHLORIDE 102 mmol/L (98-107); CREATININE 0.56 mg/dL (0.55-1.02); POTASSIUM 3.7 mmol/L (3.5-5.1); SODIUM 133 mmol/L (136-145)
--- NOTE | 2019-12-26 07:15 | NUR ---
REPORT RECEIVED FROM ADAN PATEL. PT LYING IN BED WITH EYES CLOSED. NO S/S OF DISTRESS, CALL LIGHT IN REACH
[2019-12-26 08:00] VITALS: BP 104/57
--- NOTE | 2019-12-26 09:00 | NUR ---
IN TO SEE PT. VOICES NO COMPLAINTS. MORNING MEDICATIONS GIVEN. CALL LIGHT IN REACH
--- NOTE | 2019-12-26 09:17 | NUR ---
DILAUDID GIVEN FOR COMPLAINTS OF 10/10 LEFT HIP PAIN. WILL MONITOR
--- NOTE | 2019-12-26 09:35 | NUR ---
PRINTING AND STAMPING SUPERVISOR SPOKE WITH THE PATIENT. PATIENT STATED SHE RESIDES AT HOME WITH HER DAUGHTER. PATIENT REPORTED THAT THEIR GAS HAS BEEN SHUT OFF FOR APPROXIMATELY 2 WEEKS. PATIENT STATED THAT THEY ARE CURRENTLY USING HEATERS TO HEAT THE HOME. PATIENT STATED THAT HER DAUGHTER IS RESPONSIBLE FOR THE GAS BILL, BUT QUIT PAYING IT WHEN THE COVID PANDEMIC HAPPENED BECAUSE SHE DID NOT THINK THEY WOULD SHUT IT OFF. THERE IS AN APPROXIMATE BALANCE OF $500, THAT WOULD NEED TO BE PAID BEFORE BEING ABLE TO HAVE IT TURNED BACK ON. PATIENT STATED THAT HER DAUGHTER IS PLANNING ON SPEAKING WITH [employer] AND [employer] THE SPECIAL MACHINE OPERATOR HAD SUGGESTED OVER THE WEEKEND. PRINTING AND STAMPING SUPERVISOR REACHED OUT TO [facility] ABOUT RESOURCES. [employer] AND [employer] WERE SUGGESTED FOR H.E.A.P AND P.I.P.P PROGRAMS. THERE IS A PROGRAM STARTING ON JAN 09 2020, [employer]. PRINTING AND STAMPING SUPERVISOR EXPLAINED ALL THIS TO THE PATIENT AND PROVIDED HER WITH RESOURCES ON [employer], [employer]GRAMS, AND [employer]. PATIENT WAS RECEPTIVE. ALL QUESTIONS ANSWERED. PRINTING AND STAMPING SUPERVISOR TO FOLLOW.
--- NOTE | 2019-12-26 09:49 | NUR ---
PHYSICAL THERAPY PT screen and eval orders received will follow. Ever Gomez SPT Mickie Leon PT
--- NOTE | 2019-12-26 10:15 | NUR ---
PT STATES JOANIE HELPED HER PAIN
--- NOTE | 2019-12-26 10:15 | NUR ---
PHYSICAL THERAPY Patient seen this am 1:1 for therapy visit and was supine in bed upon therapist arrival. Patient identified by name / and reports 6/10 L hip pain. Patient transfers supine to sit EOB with MOD A x 1, needing therapist assist of Dawit MCBRIDE to manage pain c/o during transfer. Patient tolerated several minutes static EOB sit CGA, then completed sit to stand transfer, MIN A x 1. Patient ambulated with use of wh walker, CGA, 20' x 2, requiring brief standing rest break < 20 seconds, including v/c to improve safe step sequence. Patient demonstrated "step to" loy and v/c for safe step sequence during 180 degree turn around. Patient returned to bedside chair with mild fatigue and reported slight decrease in pain to 5/10 L hip. Patient remained in chair with call light, tray table and telephone. Will continue per POC as tolerated, total treatment time 17 minutes. Jim Coughlin, ASSOCIATE PROFESSOR OF MUSICOLOGY
--- NOTE | 2019-12-26 10:30 | NUR ---
CM in to see patient. She is sitting up in her bedside chair. Discussed short term rehab vs home health care services. She declines a short term rehab. When provided with a list of home health agencies she chose [facility]. She would like a front wheeled walker and a BSC. Dr. Hughes/Dr. Galeano notified. When medically stable she will be discharged to home with [facility] services.
--- NOTE | 2019-12-26 11:00 | NUR ---
PT OFF FLOOR FOR BODY SCAN AT THIS TIME
--- NOTE | 2019-12-26 11:35 | NUR ---
PT BACK FROM RADIOLOGY
[2019-12-26 12:00] VITALS: BP 116/51
--- NOTE | 2019-12-26 13:50 | NUR ---
PHYSICAL THERAPY Patient seen this pm 1:1 for therapy visit and was sitting up in bedside chair upon therapist arrival. Patient identified by name / and reports increased L hip pain 8/10 from prolonged sitting and no pain medicine since early am. Patient requested use of BSC and transfers sit to stand from low chair surface, MOD A x 1. Patient completed SPT to BSC, MIN A, use of wh walker standing support, demonstrating very slow movements to manage pain. Patient also able to ambulate 25'x 1, ad jatinder in room, navigating in some tight spaces, CGA, wh walker, needing several v/c's for improved step sequence and safe walker navigation. Patient returned to bedside chair reporting no change in pain c/o, however stated decreased tightness L hip. Patient remained in chair with call light, tray table and telephone. Will continue per POC as tolerated, total treatment time 17 minutes. Jim Coughlin, FOLLOW UP CLERK
--- NOTE | 2019-12-26 14:10 | NUR ---
PT IN WITH PT AT THIS TIME
--- NOTE | 2019-12-26 14:33 | NUR ---
GEODETIC SURVEY DIRECTOR FAXED REFERRAL TO [facility].
--- NOTE | 2019-12-26 15:21 | NUR ---
Faxed BSC and front wheeled walker prescriptions from Dr. Hughes to [facility]. Awaiting response.
[2019-12-26 16:00] VITALS: BP 105/48
[2019-12-26 16:08] LABS: A/G RATIO 1.1 (0.7-1.7); ALBUMIN 3.1 g/dL (2.9-4.4); ALPHA-1-GLOBULIN 0.3 g/dL (0.0-0.4); BETA GLOBULIN 0.9 g/dL (0.7-1.3); GAMMA GLOBULIN 0.6 g/dL (0.4-1.8); GLOBULIN, TOTAL 2.8 g/dL (2.2-3.9); M-SPIKE Not Observed g/dL (Not Observed)
[2019-12-26 16:40] VITALS: BP 100/46
--- NOTE | 2019-12-26 16:45 | NUR ---
DR. HERNANDEZ NOTIFIED OF PT REQUEST TO D/C FLUIDS. PERMISSION GIVEN. ALSO NOTIFIED OF MANUAL BP OF 100/46 AND PT REQUEST FOR PAIN MEDICATIONS. ORDERED PRN TYLENOL AT THIS TIME
--- NOTE | 2019-12-26 17:03 | NUR ---
TYLENOL GIVEN FOR LEFT HIP PAIN.
--- NOTE | 2019-12-26 18:00 | NUR ---
PT STATES THAT TYLENOL HELPED A LITTLE FOR PAIN
[2019-12-26 20:00] VITALS: BP 122/55
--- NOTE | 2019-12-26 20:45 | NUR ---
MEDICATED WITH PRN DILAUDID FOR C/O HIP PAIN RATED 8/10 ON A 0/10 PAIN SCALE. WILL MONITOR
--- NOTE | 2019-12-26 21:38 | NUR ---
MEDICATION EFFECTIVE PER PATIENT
--- NOTE | 2019-12-26 23:46 | NUR ---
MEDICATED WITH PRN CHAYAIEN FOR C/O SLEEPLESSNESS. WILL MONITOR
[2019-12-27] VITALS: BP 113/56
--- NOTE | 2019-12-27 00:46 | NUR ---
PATIENT RESTING IN BED WITH EYES CLOSED. MEDICATION SEEMS EFFECTIVE
--- NOTE | 2019-12-27 05:52 | NUR ---
PATIENT RESTED WELL THROUGHOUT THE NIGHT WITH NO NEEDS MADE AT THIS TIME. BED IN LOWEST POSITION, CALL LIGHT IN REACH
--- NOTE | 2019-12-27 07:30 | NUR ---
PT RESTING IN CHAIR. RESPS EASY AND NON LABORED. NO S/S OF DISTRESS NOTED. VSS. WHITE BOARD UPDATED. POC DISCUSSED W PT. STATES SHE IS HAVING SOME DULL L LEG PAIN. WILL CONTINUE TO MONITOR. CALL LIGHT WITHIN REACH.
[2019-12-27 08:00] VITALS: BP 138/56
--- NOTE | 2019-12-27 08:09 | NUR ---
PT C/O DULL 4/10 ACHING L LEG PAIN. MEDICATED PER ORDER. WILL MONITOR FOR RELIEF. SITTING UP IN CHAIR. CALL LIGHT WITHIN REACH.
--- NOTE | 2019-12-27 08:30 | NUR ---
CM in to see patient. No new needs or request at this time. Informed patient scripts were received for BSC and front wheeled walker and sent to [facility]. She verbalized an understanding. When medically stable she will be discharged to home with [facility] services. CM will continue to follow for any discharge planning needs.
--- NOTE | 2019-12-27 09:00 | NUR ---
TYLENOL MOSTLY EFFECTIVE PER PT
--- NOTE | 2019-12-27 09:10 | NUR ---
PHYSICAL THERAPY Patient seen this am 1:1 for therapy visit and was sitting up in bedside chair upon therapist arrival. Patient identified by name / and reported 6/10 L hip pain. Patient was pleasant this morning tranfering sit to stand from low chair surface, CGA and completed SPT to BSC, use of walker standing support, CGA x 1. Patient also ambulated 40'x 1, walker, CGA, demonstrating slow, antalgic gait pattern and very cautious step seqence during 180 degree turn around. Patient returned to bedside chair with mild fatigue and remained with call light, tray table, telephone, voicing no change in pain c/o. Will continue per POC as tolerated, total treatment time 16 minutes. Jim Coughlin, RN SURGICAL
--- NOTE | 2019-12-27 11:49 | NUR ---
PT C/O 8/10 ACHING/STABBING L LEG PAIN.MEDICATED PER ORDER.WILL MONITOR FOR RELIEF. RESTING IN CHAIR WATCHING TV. RESPS EASY AND NON LABORED. CALL LIGHT WITHIN REACH.
[2019-12-27 12:00] VITALS: BP 108/64
--- NOTE | 2019-12-27 12:30 | NUR ---
MEDICATION EFFECTIVE PER PT
--- NOTE | 2019-12-27 13:35 | NUR ---
PHYSICAL THERAPY Patient seen this pm 1;1 for therapy visit and was sitting up in bedside chair upon therapist arrival. Patient identified by name / and reports only mild 3/10 L hip pain since receiving pain pill a few hours ago. Patient transfers sit to stand SBA and ambulates SBA, wh walker, 40'x 2, demonstrating even stride, no LOB. Patient did need v/c during 180 turn to improve walker safety, while returning to bedside chair. Patient remained in chair with call light, tray table and cell phone. Will continue per POC as tolerated, total treatment time 17 minutes. Jim Coughlin, [employer]
--- NOTE | 2019-12-27 15:39 | NUR ---
Discharge instructions reviewed with patient/family. Patient receptive and verbalizes understanding. Follow-up care arranged. Written instructions given to patient/family. ALYSSA ZEPEDA The Discharge Plan/Instructions have been completed. Hep Lock discontinued. Site asymptomatic. Pressure applied. Sterile dressing applied. ALYSSA ZEPEDA
--- NOTE | 2019-12-28 07:26 | NUR ---
Faxed discharge instructions and summary to [facility]
--- NOTE | 2019-12-28 15:30 | NUR ---
PHYSICAL THERAPY CO-SIGN I approve of the Physical Therapy notes written above. Mickie Leon PT
== END 2019-12-27 16:04 | disposition home or self-care (01) | DRG 536 ==
LOC: ED 13:28 → EDHOLD 15:09 → 4E 15:09
PROVIDERS: Emergency Medicine; Psychiatry & Neurology Psychiatry; ADMIT Internal Medicine; ATTEND Internal Medicine
PROC: 0HBRXZZ Excision of Toe Nail, External Approach (ICD-10-PCS; principal; 2019-12-24)
DX: S32.302A Unspecified fracture of left ilium, initial encounter for closed fracture (principal); E87.1 Hypo-osmolality and hyponatremia; Z68.41 Body mass index [BMI] 40.0-44.9, adult; F41.9 Anxiety disorder, unspecified; E66.01 Morbid (severe) obesity due to excess calories; D72.829 Elevated white blood cell count, unspecified; G62.9 Polyneuropathy, unspecified; E78.5 Hyperlipidemia, unspecified; E03.9 Hypothyroidism, unspecified; J44.9 Chronic obstructive pulmonary disease, unspecified; F17.210 Nicotine dependence, cigarettes, uncomplicated; B35.1 Tinea unguium; G89.29 Other chronic pain; Z91.81 History of falling; Z90.710 Acquired absence of both cervix and uterus; Z20.828 Contact with and (suspected) exposure to other viral communicable diseases; Z90.49 Acquired absence of other specified parts of digestive tract; Z98.51 Tubal ligation status; Z80.8 Family history of malignant neoplasm of other organs or systems; Z83.2 Family history of diseases of the blood and blood-forming organs and certain disorders involving the immune mechanism; Z79.899 Other long term (current) drug therapy; V89.2XXA Person injured in unspecified motor-vehicle accident, traffic, initial encounter; Y93.89 Activity, other specified; Y92.89 Other specified places as the place of occurrence of the external cause; Y99.8 Other external cause status

== ENCOUNTER 2020-01-16 12:37 | Inpatient (IN) | payer OTHER ==
[~2020-01-16] VITALS: Ht 162.5 cm; Wt 113.1 kg
[2020-01-16 13:08] VITALS: BP 161/73
[2020-01-16 13:40] LABS: BASO % 0.4 % (0.0-1.0); EOS % 0.3 % (1.0-4.0); HEMATOCRIT 31.1 % (37.0-47.0); LYMPH % 10.3 % (27.0-41.0); MEAN CELL VOLUME 84.5 fl (81.0-99.0); MEAN CORPUSCULAR HGB CONC 33.1 g/dl (33.0-37.0); MEAN PLATELET VOLUME 7.7 fl (9.6-12.3); MONO # 0.7 10*3/uL (0.1-1.0); NEUT % 81.2 % (47.0-73.0); PLATELET COUNT AUTOMATED 375 10*3/uL (130-400); RED BLOOD COUNT 3.68 10*6/uL (4.10-5.10); RED CELL DISTRI WIDTH 13.9 % (0-14.5); WHITE BLOOD COUNT 9.9 10*3/uL (4.8-10.8)
[2020-01-16 13:56] LABS: ALBUMIN 3.4 gm/dl (3.1-4.5); ALKALINE PHOSPHATASE 239 U/L (45-117); BUN 7 mg/dl (7-24); CHLORIDE 87 mmol/L (98-107); CREATININE 0.69 mg/dL (0.55-1.02); POTASSIUM 2.6 mmol/L (3.5-5.1); SGOT/AST 15 IU/L (3-35); SGPT/ALT 16 U/L (12-78); SODIUM 125 mmol/L (136-145); TOTAL PROTEIN 6.9 gm/dL (6.4-8.2)
[2020-01-16 18:14] VITALS: BP 134/54
[2020-01-16 20:00] VITALS: BP 132/72
[2020-01-17] VITALS: BP 139/67
[2020-01-17 08:00] VITALS: BP 134/64
[2020-01-17 12:00] VITALS: BP 105/73
[2020-01-17 13:46] LABS: BUN 7 mg/dl (7-24); CHLORIDE 98 mmol/L (98-107); CREATININE 0.89 mg/dL (0.55-1.02); SODIUM 131 mmol/L (136-145)
[2020-01-17 13:48] LABS: POTASSIUM 4.1 mmol/L (3.5-5.1)
[2020-01-17 13:58] LABS: BASO % 0.4 % (0.0-1.0); EOS % 0.2 % (1.0-4.0); HEMATOCRIT 34.2 % (37.0-47.0); LYMPH % 10.5 % (27.0-41.0); MEAN CELL VOLUME 86.8 fl (81.0-99.0); MEAN CORPUSCULAR HGB 27.4 pg (27.0-31.0); MEAN CORPUSCULAR HGB CONC 31.6 g/dl (33.0-37.0); MEAN PLATELET VOLUME 8.1 fl (9.6-12.3); MONO # 0.8 10*3/uL (0.1-1.0); MONO % 8.2 % (3.0-9.0); NEUT # 7.7 10*3/uL (2.3-7.9); NEUT % 80.1 % (47.0-73.0); PLATELET COUNT AUTOMATED 401 10*3/uL (130-400); RED BLOOD COUNT 3.94 10*6/uL (4.10-5.10); RED CELL DISTRI WIDTH 14.4 % (0-14.5); WHITE BLOOD COUNT 9.6 10*3/uL (4.8-10.8)
[2020-01-17 16:00] VITALS: BP 132/64
[2020-01-17 20:00] VITALS: BP 92/50
[2020-01-18] VITALS: BP 121/56
[2020-01-18 06:29] LABS: BUN 7 mg/dl (7-24); CHLORIDE 102 mmol/L (98-107); POTASSIUM 3.3 mmol/L (3.5-5.1); SODIUM 137 mmol/L (136-145)
[2020-01-18 06:32] LABS: CREATININE 0.64 mg/dL (0.55-1.02)
[2020-01-18 06:48] LABS: BASO # 0.1 10*3/uL (0.0-0.1); BASO % 0.6 % (0.0-1.0); EOS # 0.1 10*3/uL (0.0-0.4); EOS % 0.7 % (1.0-4.0); HEMATOCRIT 32.1 % (37.0-47.0); LYMPH # 1.1 10*3/uL (1.3-4.4); LYMPH % 12.9 % (27.0-41.0); MEAN CELL VOLUME 88.2 fl (81.0-99.0); MEAN CORPUSCULAR HGB CONC 31.8 g/dl (33.0-37.0); MEAN PLATELET VOLUME 8.3 fl (9.6-12.3); MONO # 0.9 10*3/uL (0.1-1.0); MONO % 11.4 % (3.0-9.0); NEUT % 73.7 % (47.0-73.0); PLATELET COUNT AUTOMATED 387 10*3/uL (130-400); RED BLOOD COUNT 3.64 10*6/uL (4.10-5.10); RED CELL DISTRI WIDTH 14.4 % (0-14.5); WHITE BLOOD COUNT 8.2 10*3/uL (4.8-10.8)
[2020-01-18 08:00] VITALS: BP 121/56
[2020-01-18 16:00] VITALS: BP 134/79
[2020-01-18 20:00] VITALS: BP 126/67
[2020-01-19] VITALS: BP 143/76
[2020-01-19 06:27] LABS: BASO % 0.5 % (0.0-1.0); EOS # 0.1 10*3/uL (0.0-0.4); EOS % 0.8 % (1.0-4.0); HEMATOCRIT 31.8 % (37.0-47.0); LYMPH # 1.2 10*3/uL (1.3-4.4); LYMPH % 14.5 % (27.0-41.0); MEAN CELL VOLUME 88.6 fl (81.0-99.0); MEAN CORPUSCULAR HGB 27.3 pg (27.0-31.0); MEAN CORPUSCULAR HGB CONC 30.8 g/dl (33.0-37.0); MEAN PLATELET VOLUME 8.3 fl (9.6-12.3); MONO # 0.9 10*3/uL (0.1-1.0); MONO % 11.2 % (3.0-9.0); NEUT % 72.4 % (47.0-73.0); PLATELET COUNT AUTOMATED 364 10*3/uL (130-400); RED BLOOD COUNT 3.59 10*6/uL (4.10-5.10); RED CELL DISTRI WIDTH 14.6 % (0-14.5); WHITE BLOOD COUNT 8.3 10*3/uL (4.8-10.8)
[2020-01-19 06:47] LABS: BUN 8 mg/dl (7-24); CHLORIDE 102 mmol/L (98-107); CREATININE 0.69 mg/dL (0.55-1.02); POTASSIUM 3.3 mmol/L (3.5-5.1); SODIUM 137 mmol/L (136-145)
[2020-01-19 08:00] VITALS: BP 148/75
[2020-01-19 16:00] VITALS: BP 132/68
[2020-01-19 20:00] VITALS: BP 125/70
[2020-01-20] VITALS: BP 151/78
[2020-01-20 06:45] LABS: BASO % 0.5 % (0.0-1.0); EOS # 0.1 10*3/uL (0.0-0.4); EOS % 1.3 % (1.0-4.0); HEMATOCRIT 32.7 % (37.0-47.0); LYMPH # 1.4 10*3/uL (1.3-4.4); LYMPH % 18.4 % (27.0-41.0); MEAN CELL VOLUME 88.6 fl (81.0-99.0); MEAN CORPUSCULAR HGB 27.6 pg (27.0-31.0); MEAN CORPUSCULAR HGB CONC 31.2 g/dl (33.0-37.0); MEAN PLATELET VOLUME 8.4 fl (9.6-12.3); MONO # 0.7 10*3/uL (0.1-1.0); MONO % 9.5 % (3.0-9.0); NEUT # 5.5 10*3/uL (2.3-7.9); NEUT % 69.7 % (47.0-73.0); PLATELET COUNT AUTOMATED 347 10*3/uL (130-400); RED BLOOD COUNT 3.69 10*6/uL (4.10-5.10); RED CELL DISTRI WIDTH 14.4 % (0-14.5); WHITE BLOOD COUNT 7.8 10*3/uL (4.8-10.8)
[2020-01-20 07:10] LABS: BUN 8 mg/dl (7-24); CHLORIDE 102 mmol/L (98-107); CREATININE 0.61 mg/dL (0.55-1.02); POTASSIUM 3.2 mmol/L (3.5-5.1); SODIUM 136 mmol/L (136-145)
[2020-01-20 08:00] VITALS: BP 154/99
[2020-01-20 16:00] VITALS: BP 154/86
[2020-01-20 20:00] VITALS: BP 155/85
[2020-01-21] VITALS: BP 154/86
[2020-01-21 06:35] LABS: BASO % 0.6 % (0.0-1.0); EOS # 0.1 10*3/uL (0.0-0.4); EOS % 1.2 % (1.0-4.0); HEMATOCRIT 31.8 % (37.0-47.0); LYMPH # 1.2 10*3/uL (1.3-4.4); LYMPH % 18.1 % (27.0-41.0); MEAN CELL VOLUME 88.1 fl (81.0-99.0); MEAN CORPUSCULAR HGB CONC 31.8 g/dl (33.0-37.0); MEAN PLATELET VOLUME 8.2 fl (9.6-12.3); MONO # 0.6 10*3/uL (0.1-1.0); MONO % 9.5 % (3.0-9.0); NEUT # 4.6 10*3/uL (2.3-7.9); NEUT % 70.1 % (47.0-73.0); PLATELET COUNT AUTOMATED 308 10*3/uL (130-400); RED BLOOD COUNT 3.61 10*6/uL (4.10-5.10); RED CELL DISTRI WIDTH 14.3 % (0-14.5); WHITE BLOOD COUNT 6.6 10*3/uL (4.8-10.8)
[2020-01-21 06:48] LABS: BUN 6 mg/dl (7-24); CHLORIDE 99 mmol/L (98-107); CREATININE 0.62 mg/dL (0.55-1.02); POTASSIUM 3.7 mmol/L (3.5-5.1); SODIUM 136 mmol/L (136-145)
[2020-01-21 08:00] VITALS: BP 155/83
[2020-01-21 12:00] VITALS: BP 146/69
[2020-01-21 16:00] VITALS: BP 141/65
[2020-01-21 20:00] VITALS: BP 130/69
[2020-01-22] VITALS: BP 144/76
[2020-01-22 08:00] VITALS: BP 122/55
[2020-01-22 12:00] VITALS: BP 117/48
[2020-01-22 16:00] VITALS: BP 135/52
[2020-01-23] VITALS: BP 147/73
[2020-01-23 06:43] LABS: BUN 8 mg/dl (7-24); CHLORIDE 100 mmol/L (98-107); CREATININE 0.59 mg/dL (0.55-1.02); POTASSIUM 3.4 mmol/L (3.5-5.1); SODIUM 134 mmol/L (136-145)
[2020-01-23 08:00] VITALS: BP 158/66
[2020-01-23 12:00] VITALS: BP 157/62
[2020-01-23 16:00] VITALS: BP 157/88
[2020-01-24] VITALS: BP 130/62
[2020-01-24 06:39] LABS: BASO % 0.7 % (0.0-1.0); EOS # 0.1 10*3/uL (0.0-0.4); EOS % 1.6 % (1.0-4.0); HEMATOCRIT 31.9 % (37.0-47.0); LYMPH # 1.2 10*3/uL (1.3-4.4); LYMPH % 19.2 % (27.0-41.0); MEAN CELL VOLUME 88.1 fl (81.0-99.0); MEAN CORPUSCULAR HGB 27.3 pg (27.0-31.0); MEAN PLATELET VOLUME 8.7 fl (9.6-12.3); MONO # 0.8 10*3/uL (0.1-1.0); MONO % 12.7 % (3.0-9.0); NEUT % 65.3 % (47.0-73.0); PLATELET COUNT AUTOMATED 358 10*3/uL (130-400); RED BLOOD COUNT 3.62 10*6/uL (4.10-5.10); RED CELL DISTRI WIDTH 14.1 % (0-14.5); WHITE BLOOD COUNT 6.1 10*3/uL (4.8-10.8)
[2020-01-24 06:53] LABS: BUN 7 mg/dl (7-24); CHLORIDE 100 mmol/L (98-107); CREATININE 0.57 mg/dL (0.55-1.02); POTASSIUM 3.5 mmol/L (3.5-5.1); SODIUM 133 mmol/L (136-145)
[2020-01-24 08:00] VITALS: BP 152/70
[2020-01-24] MEDS ORDERED: MOBIC7.5 MG PO (13:18)
[2020-01-24] MEDS ORDERED: NICODERM T (13:18)
[2020-01-24] MEDS ORDERED: FORTEO2.4 ML SQ (13:20)
[2020-01-24] MEDS ORDERED: OS-CAL 500+D31 EACH PO (13:50)
[2020-01-24 16:00] VITALS: BP 146/78
[2020-01-25] VITALS: BP 153/76
[2020-01-25 08:00] VITALS: BP 141/75
[2020-01-25 16:01] VITALS: BP 152/82
[2020-01-26] VITALS: BP 144/71
[2020-01-26 08:00] VITALS: BP 142/81
[2020-01-26] MEDS ORDERED: DURAGESIC1 EAC2 T (13:18)
[2020-01-26 16:00] VITALS: BP 134/70
[2020-01-27] VITALS: BP 109/57
[2020-01-27 06:33] LABS: BASO # 0.1 10*3/uL (0.0-0.1); BASO % 0.9 % (0.0-1.0); EOS # 0.1 10*3/uL (0.0-0.4); EOS % 2.6 % (1.0-4.0); HEMATOCRIT 34.2 % (37.0-47.0); LYMPH # 1.1 10*3/uL (1.3-4.4); LYMPH % 20.8 % (27.0-41.0); MEAN CELL VOLUME 90.5 fl (81.0-99.0); MEAN CORPUSCULAR HGB 27.8 pg (27.0-31.0); MEAN CORPUSCULAR HGB CONC 30.7 g/dl (33.0-37.0); MEAN PLATELET VOLUME 8.7 fl (9.6-12.3); MONO # 0.7 10*3/uL (0.1-1.0); MONO % 12.4 % (3.0-9.0); NEUT # 3.4 10*3/uL (2.3-7.9); NEUT % 62.7 % (47.0-73.0); PLATELET COUNT AUTOMATED 356 10*3/uL (130-400); RED BLOOD COUNT 3.78 10*6/uL (4.10-5.10); RED CELL DISTRI WIDTH 14.2 % (0-14.5); WHITE BLOOD COUNT 5.4 10*3/uL (4.8-10.8)
[2020-01-27 06:56] LABS: CREATININE 0.59 mg/dL (0.55-1.02)
[2020-01-27 08:00] VITALS: BP 141/69
[2020-01-27 14:23] LABS: BUN 10 mg/dl (7-24); CHLORIDE 97 mmol/L (98-107); CREATININE 0.66 mg/dL (0.55-1.02); POTASSIUM 4.2 mmol/L (3.5-5.1); SODIUM 130 mmol/L (136-145)
[2020-01-27 16:00] VITALS: BP 136/61
[2020-01-28] VITALS: BP 155/83
[2020-01-28 08:00] VITALS: BP 154/83
[2020-01-28 12:00] VITALS: BP 151/70
[2020-01-28 16:00] VITALS: BP 156/77
[2020-01-28 20:00] VITALS: BP 146/76
[2020-01-29] VITALS: BP 146/79
[2020-01-29 08:00] VITALS: BP 150/88
[2020-01-29 16:00] VITALS: BP 137/67
[2020-01-29 20:00] VITALS: BP 135/70
[2020-01-30] VITALS: BP 149/88
[2020-01-30 06:21] LABS: BASO % 0.6 % (0.0-1.0); EOS # 0.1 10*3/uL (0.0-0.4); EOS % 2.7 % (1.0-4.0); HEMATOCRIT 35.8 % (37.0-47.0); LYMPH # 1.2 10*3/uL (1.3-4.4); LYMPH % 24.5 % (27.0-41.0); MEAN CELL VOLUME 89.5 fl (81.0-99.0); MEAN CORPUSCULAR HGB 27.5 pg (27.0-31.0); MEAN CORPUSCULAR HGB CONC 30.7 g/dl (33.0-37.0); MEAN PLATELET VOLUME 8.5 fl (9.6-12.3); MONO # 0.5 10*3/uL (0.1-1.0); MONO % 11.3 % (3.0-9.0); NEUT # 2.9 10*3/uL (2.3-7.9); NEUT % 60.5 % (47.0-73.0); PLATELET COUNT AUTOMATED 379 10*3/uL (130-400); RED CELL DISTRI WIDTH 13.8 % (0-14.5); WHITE BLOOD COUNT 4.8 10*3/uL (4.8-10.8)
[2020-01-30 06:35] LABS: CREATININE 0.58 mg/dL (0.55-1.02)
[2020-01-30 08:00] VITALS: BP 159/75
[2020-01-30 16:00] VITALS: BP 138/77
[2020-01-30 20:04] VITALS: BP 118/73
[2020-01-31] VITALS: BP 131/66
[2020-01-31 08:00] VITALS: BP 120/66
[2020-01-31] MEDS ORDERED: NICOTINE PATCH1 EAC2 TD (15:26)
== END 2020-01-31 16:04 | disposition home health service (06) | DRG 543 ==
LOC: ED 12:37 → 5E 15:51 → EDHOLD 15:51 → 5E 17:52
PROVIDERS: Emergency Medicine; Internal Medicine Nephrology; ADMIT Internal Medicine; ATTEND Internal Medicine
DX: M80.051A Age-related osteoporosis with current pathological fracture, right femur, initial encounter for fracture (principal); E87.1 Hypo-osmolality and hyponatremia; E87.6 Hypokalemia; F41.9 Anxiety disorder, unspecified; E78.5 Hyperlipidemia, unspecified; K21.9 Gastro-esophageal reflux disease without esophagitis; R26.2 Difficulty in walking, not elsewhere classified; E87.8 Other disorders of electrolyte and fluid balance, not elsewhere classified; R73.9 Hyperglycemia, unspecified; I10 Essential (primary) hypertension; Z90.49 Acquired absence of other specified parts of digestive tract; Z90.710 Acquired absence of both cervix and uterus; Z98.51 Tubal ligation status; Z20.828 Contact with and (suspected) exposure to other viral communicable diseases

== ENCOUNTER → 2020-02-23 | Outpatient (CLI) | payer OTHER ==
[~2020-02-23] MED LIST changes: +DURAGESIC1 EAC2 T; +FORTEO2.4 ML SQ; +MOBIC7.5 MG PO; +NICODERM T; +NICOTINE PATCH1 EAC2 TD; +OS-CAL 500+D31 EACH PO
== END | disposition home or self-care (01) ==
LOC: RAD 13:52
PROVIDERS: ATTEND Orthopaedic Surgery
DX: S32.302A Unspecified fracture of left ilium, initial encounter for closed fracture (principal); X58.XXXA Exposure to other specified factors, initial encounter; Y93.89 Activity, other specified; Y92.89 Other specified places as the place of occurrence of the external cause; Y99.8 Other external cause status

== ENCOUNTER → 2020-04-03 | Outpatient (CLI) | payer OTHER | END | disposition home or self-care (01) | LOC: RAD 10:35 | PROVIDERS: ATTEND Orthopaedic Surgery | DX: M80.059 Age-related osteoporosis with current pathological fracture, unspecified femur (principal); M51.37 Other intervertebral disc degeneration, lumbosacral region; M51.36 Other intervertebral disc degeneration, lumbar region; G95.29 Other cord compression ==

== ENCOUNTER → 2020-06-04 | Outpatient (CLI) | payer OTHER ==
[~2020-06-04] MED LIST changes: +ASPIRIN FOR CHI81 MG PO; +FUROSEMIDE40 MG PO; +GABAPENTIN600 MG PO; +OMEPRAZOLE40 MG PO; +POTASSIUM CHLO20 ME4 PO; +PROAIR HFA8.5 GM INH
== END | disposition home or self-care (01) ==
LOC: MRI 05-11 09:55
PROVIDERS: ATTEND Orthopaedic Surgery
DX: S32.502A Unspecified fracture of left pubis, initial encounter for closed fracture (principal); S32.501A Unspecified fracture of right pubis, initial encounter for closed fracture; S39.013A Strain of muscle, fascia and tendon of pelvis, initial encounter; S39.012A Strain of muscle, fascia and tendon of lower back, initial encounter; S32.309D Unspecified fracture of unspecified ilium, subsequent encounter for fracture with routine healing; S32.10XD Unspecified fracture of sacrum, subsequent encounter for fracture with routine healing; M25.452 Effusion, left hip; M65.88 Other synovitis and tenosynovitis, other site; M16.11 Unilateral primary osteoarthritis, right hip; K57.90 Diverticulosis of intestine, part unspecified, without perforation or abscess without bleeding; M47.816 Spondylosis without myelopathy or radiculopathy, lumbar region; M48.17 Ankylosing hyperostosis [Forestier], lumbosacral region; M48.061 Spinal stenosis, lumbar region without neurogenic claudication; M43.16 Spondylolisthesis, lumbar region; M43.17 Spondylolisthesis, lumbosacral region; M51.36 Other intervertebral disc degeneration, lumbar region; M51.37 Other intervertebral disc degeneration, lumbosacral region; M48.07 Spinal stenosis, lumbosacral region; R60.0 Localized edema; M87.059 Idiopathic aseptic necrosis of unspecified femur; Z90.710 Acquired absence of both cervix and uterus; X58.XXXA Exposure to other specified factors, initial encounter; Y93.89 Activity, other specified; Y92.89 Other specified places as the place of occurrence of the external cause; Y99.8 Other external cause status; X58.XXXD Exposure to other specified factors, subsequent encounter

== ENCOUNTER 2020-06-13 16:46 | Inpatient (IN) | payer OTHER ==
[~2020-06-13] VITALS: Ht 162.6 cm; Wt 98.1 kg
[~2020-06-13 16:46] MED LIST changes: -ASPIRIN FOR CHI81 MG PO; -FUROSEMIDE40 MG PO; -GABAPENTIN600 MG PO; -OMEPRAZOLE40 MG PO; -POTASSIUM CHLO20 ME4 PO; -PROAIR HFA8.5 GM INH
[2020-06-13 17:33] VITALS: BP 99/46
[2020-06-13 18:12] LABS: BUN 9 mg/dl (7-24); CHLORIDE 85 mmol/L (98-107); CREATININE 0.62 mg/dL (0.55-1.02); SODIUM 128 mmol/L (136-145)
[2020-06-13 18:24] LABS: POTASSIUM 2.1 mmol/L (3.5-5.1)
[2020-06-13 19:04] LABS: ACT PARTIAL THROMBO TIME 28.5 SECONDS (20.0-32.1)
[2020-06-13 19:09] LABS: TROPONIN I < 0.015 ng/ml (<0.045)
[2020-06-13 20:27] VITALS: BP 96/50
[2020-06-13 22:55] VITALS: BP 92/42
[2020-06-13 23:25] VITALS: BP 121/55
[2020-06-13 23:30] VITALS: BP 121/55
[2020-06-14] VITALS (7 sets, daily range): BP systolic 89–158; BP diastolic 36–77
[2020-06-14 00:01] LABS: BASO % 0.4 % (0.0-1.0); EOS # 0.1 10*3/uL (0.0-0.4); EOS % 1.4 % (1.0-4.0); HEMATOCRIT 30.2 % (37.0-47.0); LYMPH % 11.5 % (27.0-41.0); MEAN CELL VOLUME 81.6 fl (81.0-99.0); MEAN CORPUSCULAR HGB 27.3 pg (27.0-31.0); MEAN CORPUSCULAR HGB CONC 33.4 g/dl (33.0-37.0); MEAN PLATELET VOLUME 7.9 fl (9.6-12.3); MONO # 0.7 10*3/uL (0.1-1.0); MONO % 8.5 % (3.0-9.0); NEUT # 6.6 10*3/uL (2.3-7.9); NEUT % 77.5 % (47.0-73.0); PLATELET COUNT AUTOMATED 541 10*3/uL (130-400); RED CELL DISTRI WIDTH 13.8 % (0-14.5); WHITE BLOOD COUNT 8.5 10*3/uL (4.8-10.8)
[2020-06-14] MEDS ORDERED: PROAIR HFA8.5 GM INH (00:08)
[2020-06-14] MEDS ORDERED: POTASSIUM CHLO20 ME4 PO (00:10)
[2020-06-14] MEDS ORDERED: ARIPIPRAZOLE10 MG PO (00:11)
[2020-06-14] MEDS ORDERED: ASPIRIN FOR CHI81 MG PO (00:11)
[2020-06-14] MEDS ORDERED: FUROSEMIDE40 MG PO (00:11)
[2020-06-14] MEDS ORDERED: OMEPRAZOLE40 MG PO (00:12)
[2020-06-14 00:18] LABS: BUN 7 mg/dl (7-24); CHLORIDE 90 mmol/L (98-107); POTASSIUM 2.5 mmol/L (3.5-5.1); SODIUM 132 mmol/L (136-145)
[2020-06-14 04:27] LABS: BILIRUBIN Negative (Negative); BLOOD Negative (Negative); CLARITY Clear (Clear); COLOR Yellow (Yellow); GLUCOSE Negative (Negative); KETONE Negative (Negative); LEUKO ESTERASE Negative (Negative); NITRITE Negative (Negative); SPECIFIC GRAVITY >= 1.030 (1.001-1.030)
[2020-06-14 04:38] LABS: BACTERIA TRACE; WBC 0-2 wbc/hpf (0-5); YEAST TRACE
[2020-06-14 05:56] LABS: BUN 6 mg/dl (7-24); CHLORIDE 90 mmol/L (98-107); CREATININE 0.47 mg/dL (0.55-1.02); POTASSIUM 2.8 mmol/L (3.5-5.1); SODIUM 130 mmol/L (136-145)
[2020-06-14 05:59] LABS: CPK 167 U/L (26-192); LDH 219 U/L (84-246)
[2020-06-14] MEDS ORDERED: GABAPENTIN600 MG PO (06:13)
[2020-06-14 06:23] LABS: MEAN CORPUSCULAR HGB 27.2 pg (27.0-31.0); MEAN CORPUSCULAR HGB CONC 33.2 g/dl (33.0-37.0); MEAN PLATELET VOLUME 8.2 fl (9.6-12.3); PLATELET COUNT AUTOMATED 563 10*3/uL (130-400); RED BLOOD COUNT 3.78 10*6/uL (4.10-5.10); RED CELL DISTRI WIDTH 13.8 % (0-14.5); WHITE BLOOD COUNT 9.4 10*3/uL (4.8-10.8)
[2020-06-14 07:33] LABS: FERRITIN 77.5 ng/mL (10.0-291.0); PTH INTACT 66.6 pg/mL (18.5-88.0)
[2020-06-14 08:01] LABS: TOTAL CELLS COUNTED 100 #CELLS
[2020-06-14 08:02] LABS: PLATELET SUFFICIENCY HIGH (NORMAL); POLYCHROMASIA SLIGHT; TARGET CELLS FEW
[2020-06-15] VITALS: BP 115/55
[2020-06-15 03:06] LABS: TOTAL PROTEIN, SERUM 5.8 g/dL (6.0-8.5)
[2020-06-15 04:00] VITALS: BP 104/65
[2020-06-15 05:55] LABS: ALBUMIN 2.5 gm/dl (3.1-4.5); ALKALINE PHOSPHATASE 151 U/L (45-117); BUN 8 mg/dl (7-24); CHLORIDE 92 mmol/L (98-107); CREATININE 0.52 mg/dL (0.55-1.02); LDH 183 U/L (84-246); POTASSIUM 3.2 mmol/L (3.5-5.1); SGOT/AST 14 IU/L (3-35); SGPT/ALT 20 U/L (12-78); SODIUM 132 mmol/L (136-145); TOTAL PROTEIN 6.1 gm/dL (6.4-8.2)
[2020-06-15 05:59] LABS: CPK 63 U/L (26-192)
[2020-06-15 06:17] LABS: BASO % 0.3 % (0.0-1.0); EOS # 0.1 10*3/uL (0.0-0.4); EOS % 0.9 % (1.0-4.0); HEMATOCRIT 29.4 % (37.0-47.0); LYMPH # 1.5 10*3/uL (1.3-4.4); LYMPH % 14.9 % (27.0-41.0); MEAN CORPUSCULAR HGB CONC 31.3 g/dl (33.0-37.0); MEAN PLATELET VOLUME 8.1 fl (9.6-12.3); MONO # 0.9 10*3/uL (0.1-1.0); NEUT # 7.5 10*3/uL (2.3-7.9); NEUT % 74.1 % (47.0-73.0); PLATELET COUNT AUTOMATED 552 10*3/uL (130-400); RED BLOOD COUNT 3.41 10*6/uL (4.10-5.10); WHITE BLOOD COUNT 10.1 10*3/uL (4.8-10.8)
[2020-06-15 06:23] LABS: MEAN CELL VOLUME 86.2 fl (81.0-99.0)
[2020-06-15 08:00] VITALS: BP 128/58
[2020-06-15 12:00] VITALS: BP 132/86
[2020-06-15 16:00] VITALS: BP 156/73
[2020-06-15 16:08] LABS: A/G RATIO 0.9 (0.7-1.7); ALBUMIN 2.8 g/dL (2.9-4.4); ALPHA-1-GLOBULIN 0.4 g/dL (0.0-0.4); ALPHA-2-GLOBULIN 1.1 g/dL (0.4-1.0); GAMMA GLOBULIN 0.5 g/dL (0.4-1.8); M-SPIKE Not Observed g/dL (Not Observed)
[2020-06-15 20:00] VITALS: BP 157/88
[2020-06-16] VITALS: BP 128/69
[2020-06-16 05:53] LABS: ALBUMIN 2.6 gm/dl (3.1-4.5); ALKALINE PHOSPHATASE 160 U/L (45-117); BUN 11 mg/dl (7-24); CHLORIDE 95 mmol/L (98-107); CREATININE 0.55 mg/dL (0.55-1.02); LDH 198 U/L (84-246); SGOT/AST 35 IU/L (3-35); SGPT/ALT 41 U/L (12-78); SODIUM 130 mmol/L (136-145); TOTAL PROTEIN 6.3 gm/dL (6.4-8.2)
[2020-06-16 05:55] LABS: BASO # 0.1 10*3/uL (0.0-0.1); BASO % 0.5 % (0.0-1.0); CPK 37 U/L (26-192); EOS # 0.1 10*3/uL (0.0-0.4); EOS % 0.7 % (1.0-4.0); HEMATOCRIT 31.3 % (37.0-47.0); LYMPH # 1.9 10*3/uL (1.3-4.4); LYMPH % 19.1 % (27.0-41.0); MEAN CELL VOLUME 86.9 fl (81.0-99.0); MEAN CORPUSCULAR HGB 27.2 pg (27.0-31.0); MEAN CORPUSCULAR HGB CONC 31.3 g/dl (33.0-37.0); MONO # 0.9 10*3/uL (0.1-1.0); MONO % 8.9 % (3.0-9.0); NEUT # 6.8 10*3/uL (2.3-7.9); NEUT % 69.9 % (47.0-73.0); PLATELET COUNT AUTOMATED 552 10*3/uL (130-400); POTASSIUM 4.3 mmol/L (3.5-5.1); WHITE BLOOD COUNT 9.7 10*3/uL (4.8-10.8)
[2020-06-16 08:00] VITALS: BP 135/86
[2020-06-16 12:00] VITALS: BP 132/72
[2020-06-16 16:00] VITALS: BP 135/68
[2020-06-16 20:00] VITALS: BP 140/64
[2020-06-17] VITALS: BP 143/68
[2020-06-17 05:09] LABS: BASO % 0.4 % (0.0-1.0); EOS % 0.1 % (1.0-4.0); HEMATOCRIT 31.9 % (37.0-47.0); LYMPH # 1.6 10*3/uL (1.3-4.4); LYMPH % 15.1 % (27.0-41.0); MEAN CELL VOLUME 87.4 fl (81.0-99.0); MEAN CORPUSCULAR HGB 27.1 pg (27.0-31.0); MEAN PLATELET VOLUME 8.5 fl (9.6-12.3); MONO # 0.9 10*3/uL (0.1-1.0); MONO % 8.8 % (3.0-9.0); NEUT # 7.8 10*3/uL (2.3-7.9); NEUT % 74.2 % (47.0-73.0); PLATELET COUNT AUTOMATED 558 10*3/uL (130-400); RED BLOOD COUNT 3.65 10*6/uL (4.10-5.10); WHITE BLOOD COUNT 10.6 10*3/uL (4.8-10.8)
[2020-06-17 05:10] LABS: ALBUMIN 2.5 gm/dl (3.1-4.5); ALKALINE PHOSPHATASE 164 U/L (45-117); BUN 13 mg/dl (7-24); CHLORIDE 95 mmol/L (98-107); CREATININE 0.53 mg/dL (0.55-1.02); POTASSIUM 5.4 mmol/L (3.5-5.1); SGOT/AST 36 IU/L (3-35); SGPT/ALT 50 U/L (12-78); SODIUM 128 mmol/L (136-145); TOTAL PROTEIN 6.5 gm/dL (6.4-8.2)
[2020-06-17 08:00] VITALS: BP 150/65
[2020-06-17 12:00] VITALS: BP 128/59
[2020-06-17 16:00] VITALS: BP 136/63
[2020-06-17 20:00] VITALS: BP 156/76
[2020-06-18] VITALS: BP 168/89
[2020-06-18 01:00] VITALS: BP 148/74
[2020-06-18 06:21] LABS: BASO % 0.3 % (0.0-1.0); EOS # 0.1 10*3/uL (0.0-0.4); EOS % 0.8 % (1.0-4.0); HEMATOCRIT 33.4 % (37.0-47.0); LYMPH % 17.7 % (27.0-41.0); MEAN CELL VOLUME 85.9 fl (81.0-99.0); MEAN CORPUSCULAR HGB CONC 31.4 g/dl (33.0-37.0); MEAN PLATELET VOLUME 8.1 fl (9.6-12.3); MONO % 8.7 % (3.0-9.0); NEUT % 71.1 % (47.0-73.0); PLATELET COUNT AUTOMATED 606 10*3/uL (130-400); RED BLOOD COUNT 3.89 10*6/uL (4.10-5.10); RED CELL DISTRI WIDTH 13.8 % (0-14.5); WHITE BLOOD COUNT 11.2 10*3/uL (4.8-10.8)
[2020-06-18 06:22] LABS: BUN 12 mg/dl (7-24); CHLORIDE 91 mmol/L (98-107); CREATININE 0.65 mg/dL (0.55-1.02); POTASSIUM 4.4 mmol/L (3.5-5.1); SODIUM 129 mmol/L (136-145)
[2020-06-18 08:00] VITALS: BP 132/60
[2020-06-18 12:00] VITALS: BP 112/44
[2020-06-18 15:06] LABS: ALBUMIN, URINE 14.8 % (.); ALPHA-1-GLOBULIN, URINE 10.3 % (.); BETA GLOBULIN, URINE 31.3 % (.); GAMMA GLOBULIN, URINE 18.6 % (.); M-SPIKE, % Comment: % (Not Observed); PROTEIN,TOTAL - URINE RANDOM 12.6 mg/dL (Not Estab.)
[2020-06-18 16:00] VITALS: BP 144/70
[2020-06-18 20:00] VITALS: BP 123/52
[2020-06-19] VITALS: BP 121/65
[2020-06-19 08:00] VITALS: BP 150/65
[2020-06-19 12:00] VITALS: BP 111/57
== END 2020-06-19 13:59 | disposition home health service (06) | DRG 193 ==
LOC: ED 16:46 → ICCU 18:36 → EDHOLD 18:36 → ICCU 23:10 → 4E 06-15 06:50
PROVIDERS: Emergency Medicine; Internal Medicine; Internal Medicine Nephrology; ADMIT Internal Medicine; ATTEND Internal Medicine
DX: J18.9 Pneumonia, unspecified organism (principal); J96.01 Acute respiratory failure with hypoxia; E87.1 Hypo-osmolality and hyponatremia; F33.9 Major depressive disorder, recurrent, unspecified; E44.0 Moderate protein-calorie malnutrition; M84.454A Pathological fracture, pelvis, initial encounter for fracture; Z20.822 Contact with and (suspected) exposure to COVID-19; G62.9 Polyneuropathy, unspecified; E87.6 Hypokalemia; K21.00 Gastro-esophageal reflux disease with esophagitis, without bleeding; F17.210 Nicotine dependence, cigarettes, uncomplicated; F51.04 Psychophysiologic insomnia; B00.9 Herpesviral infection, unspecified; E03.9 Hypothyroidism, unspecified; F41.1 Generalized anxiety disorder; R73.9 Hyperglycemia, unspecified; D47.3 Essential (hemorrhagic) thrombocythemia; E87.8 Other disorders of electrolyte and fluid balance, not elsewhere classified; E83.41 Hypermagnesemia; D64.9 Anemia, unspecified; J44.9 Chronic obstructive pulmonary disease, unspecified; Z71.6 Tobacco abuse counseling; Z98.51 Tubal ligation status; Z90.49 Acquired absence of other specified parts of digestive tract; Z90.710 Acquired absence of both cervix and uterus; Z68.37 Body mass index [BMI] 37.0-37.9, adult

== ENCOUNTER 2020-07-21 00:46 | Emergency (ER) | payer OTHER ==
[~2020-07-21] VITALS: Ht 162.5 cm; Wt 97.5 kg
[~2020-07-21 00:46] MED LIST changes: +ASPIRIN FOR CHI81 MG PO; +FUROSEMIDE40 MG PO; +GABAPENTIN600 MG PO; +OMEPRAZOLE40 MG PO; +POTASSIUM CHLO20 ME4 PO; +PROAIR HFA8.5 GM INH
== END 2020-07-21 02:53 | disposition home or self-care (01) ==
LOC: ED 00:46
DX: M25.559 Pain in unspecified hip (principal); G89.29 Other chronic pain; Z79.899 Other long term (current) drug therapy; Z90.711 Acquired absence of uterus with remaining cervical stump; Z98.51 Tubal ligation status

== ENCOUNTER → 2020-10-04 | Outpatient (CLI) | payer OTHER | END | disposition home or self-care (01) | LOC: US 13:44 | PROVIDERS: ATTEND Internal Medicine Nephrology | DX: R60.0 Localized edema (principal) ==

== ENCOUNTER → 2020-10-17 | Outpatient (CLI) | payer OTHER ==
[2020-10-17 08:35] LABS: BUN 9 mg/dl (7-24); CHLORIDE 95 mmol/L (98-107); CREATININE 0.53 mg/dL (0.55-1.02); POTASSIUM 3.8 mmol/L (3.5-5.1); SODIUM 129 mmol/L (136-145)
== END | disposition home or self-care (01) ==
LOC: LAB 07:24
PROVIDERS: ATTEND Internal Medicine
DX: R60.0 Localized edema (principal)

== ENCOUNTER → 2020-11-29 | Outpatient (CLI) | payer OTHER | END | disposition home or self-care (01) | LOC: RAD 13:18 | PROVIDERS: ATTEND Orthopaedic Surgery | DX: Z13.820 Encounter for screening for osteoporosis (principal); M80.00XD Age-related osteoporosis with current pathological fracture, unspecified site, subsequent encounter for fracture with routine healing; Z78.0 Asymptomatic menopausal state ==

== ENCOUNTER → 2021-02-04 | Outpatient (CLI) | payer OTHER | END | disposition home or self-care (01) | LOC: ORTHO 12:02 | PROVIDERS: ATTEND Orthopaedic Surgery | DX: S32.392A Other fracture of left ilium, initial encounter for closed fracture (principal); S83.122A Posterior subluxation of proximal end of tibia, left knee, initial encounter; M87.052 Idiopathic aseptic necrosis of left femur; M21.70 Unequal limb length (acquired), unspecified site; X58.XXXA Exposure to other specified factors, initial encounter; Y93.89 Activity, other specified; Y92.89 Other specified places as the place of occurrence of the external cause; Y99.8 Other external cause status ==

== ENCOUNTER → 2021-02-12 | Outpatient (CLI) | payer OTHER | END | disposition home or self-care (01) | LOC: CT 10:25 | PROVIDERS: ATTEND Orthopaedic Surgery | DX: S73.002A Unspecified subluxation of left hip, initial encounter (principal); X58.XXXA Exposure to other specified factors, initial encounter; Y93.89 Activity, other specified; Y92.89 Other specified places as the place of occurrence of the external cause; Y99.8 Other external cause status ==

== ENCOUNTER → 2021-02-13 | Outpatient (CLI) | payer OTHER | END | disposition home or self-care (01) | LOC: COVID19 17:02 | PROVIDERS: ATTEND Internal Medicine | DX: U07.1 COVID-19 (principal) ==

== ENCOUNTER → 2021-02-25 | Outpatient (CLI) | payer OTHER | END | disposition home or self-care (01) | LOC: COVID19 16:33 | PROVIDERS: ATTEND Internal Medicine | DX: Z11.52 Encounter for screening for COVID-19 (principal) ==

== ENCOUNTER → 2021-03-28 | Outpatient (CLI) | payer OTHER | END | disposition home or self-care (01) | LOC: LAB 12:34 | DX: M87.052 Idiopathic aseptic necrosis of left femur (principal) ==

== ENCOUNTER → 2021-05-17 | Outpatient (CLI) | payer OTHER ==
[2021-05-17 09:07] LABS: BUN 7 mg/dl (7-24); CHLORIDE 96 mmol/L (98-107); CREATININE 0.45 mg/dL (0.55-1.02); POTASSIUM 4.6 mmol/L (3.5-5.1); SODIUM 130 mmol/L (136-145)
== END | disposition home or self-care (01) ==
LOC: LAB 08:19
PROVIDERS: ATTEND Internal Medicine Nephrology
DX: E87.1 Hypo-osmolality and hyponatremia (principal)

== ENCOUNTER → 2021-07-31 | Outpatient (CLI) | payer OTHER | END | disposition home or self-care (01) | LOC: LAB 11:00 → MAMMO 11:00 | PROVIDERS: ATTEND Internal Medicine | DX: Z12.31 Encounter for screening mammogram for malignant neoplasm of breast (principal); M81.0 Age-related osteoporosis without current pathological fracture ==

== ENCOUNTER 2024-07-08 13:20 | Emergency (ER) | payer OTHER ==
[~2024-07-08] VITALS: Ht 152.4 cm; Wt 77.1 kg
[2024-07-08 13:50] LABS: BASO % 0.6 % (0.0-1.0); EOS # 0.1 10*3/uL (0.0-0.4); EOS % 0.8 % (1.0-4.0); MEAN CELL VOLUME 92.7 fl (81.0-99.0); MEAN CORPUSCULAR HGB CONC 31.3 g/dl (33.0-37.0); MEAN PLATELET VOLUME 8.8 fl (9.6-12.3); MONO # 0.8 10*3/uL (0.1-1.0); MONO % 10.7 % (3.0-9.0); NEUT # 4.6 10*3/uL (2.3-7.9); NEUT % 64.3 % (47.0-73.0); PLATELET COUNT AUTOMATED 245 10*3/uL (130-400); RED CELL DISTRI WIDTH 12.8 % (0-14.5); WHITE BLOOD COUNT 7.2 10*3/uL (4.8-10.8)
[2024-07-08 14:24] LABS: BUN 8 mg/dl (9-23); CHLORIDE 93 mmol/L (98-107); POTASSIUM 2.7 mmol/L (3.4-5.1)
[2024-07-08] MEDS ORDERED: POTASSIUM CHLORIDE 20 MEQ TAB PO ONE (14:30)
[2024-07-08] MEDS ORDERED: Lasix80 MG PO (14:33)
[2024-07-08] MEDS ORDERED: POTASSIUM CHLO20 ME3 PO (14:33)
== END 2024-07-08 14:49 | disposition home or self-care (01) ==
LOC: ED 13:20
PROVIDERS: Emergency Medicine
DX: R22.41 Localized swelling, mass and lump, right lower limb (principal); R22.42 Localized swelling, mass and lump, left lower limb; E87.6 Hypokalemia; J44.9 Chronic obstructive pulmonary disease, unspecified; I10 Essential (primary) hypertension; F17.200 Nicotine dependence, unspecified, uncomplicated; Z79.899 Other long term (current) drug therapy; Z79.82 Long term (current) use of aspirin; Z90.710 Acquired absence of both cervix and uterus; Z90.49 Acquired absence of other specified parts of digestive tract

== ENCOUNTER → 2024-09-16 | Outpatient (CLI) | payer OTHER ==
[~2024-09-16] MED LIST changes: +Lasix80 MG PO; +POTASSIUM CHLO20 ME3 PO
[2024-09-16 17:55] LABS: POTASSIUM 4.7 mmol/L (3.4-5.1)
== END | disposition home or self-care (01) ==
LOC: ZRVPFM 17:35
PROVIDERS: Student in an Organized Health Care Education/Training Program; ATTEND Family Medicine
DX: E83.52 Hypercalcemia (principal)

== ENCOUNTER → 2024-12-15 | Outpatient (CLI) | payer OTHER | END | disposition home or self-care (01) | LOC: RAD 08:05 | PROVIDERS: ATTEND Family Medicine | DX: M51.370 Other intervertebral disc degeneration, lumbosacral region with discogenic back pain only (principal); M43.16 Spondylolisthesis, lumbar region ==

== ENCOUNTER → 2024-12-28 | Outpatient (CLI) | payer OTHER | END | disposition home or self-care (01) | LOC: RAD 09:34 | PROVIDERS: ATTEND Family Medicine | DX: J44.1 Chronic obstructive pulmonary disease with (acute) exacerbation (principal); J98.4 Other disorders of lung; M43.8X4 Other specified deforming dorsopathies, thoracic region ==

== ENCOUNTER → 2025-01-31 | Outpatient (CLI) | payer OTHER | END | disposition home or self-care (01) | LOC: RAD 09:44 | PROVIDERS: ATTEND Family Medicine | DX: J18.9 Pneumonia, unspecified organism (principal); Z96.612 Presence of left artificial shoulder joint; Z96.611 Presence of right artificial shoulder joint ==